=== PATIENT | male | born 1935 | race Caucasian/White ===

== ENCOUNTER 2018-08-06 15:24 | Inpatient (IN) | payer MEDICARE ==
[2018-08-06] MEDS ORDERED: HEPARIN SODIUM,PORCINE 5,000 UNIT/ML 1 ML VIAL IV STA (16:11)
[2018-08-06] MEDS ORDERED: ASPIRIN 81 MG PO STA (16:14)
[2018-08-06] MEDS ORDERED: METOPROLOL TARTRATE 25 MG TAB PO STA (16:14)
[2018-08-06 16:36] LABS: Basophils # (A) 0.1 k/uL (0-0.2); Basophils % (A) 1 %; Eosinophils # (A) 0.2 k/uL (0-0.7); Eosinophils % (A) 2 %; HCT 41.2 % (39.0-53.0); HGB 12.7 gm/dL (13.0-17.5); Hypochromasia Slight; Lymphocytes # (A) 1.1 k/uL (1.0-4.8); Lymphocytes % (A) 9 %; MCH 27.9 pg (25.0-35.0); MCHC 30.7 g/dL (31.0-37.0); MCV 90.9 fL (80.0-100.0); Mean Platelet Volume 7.2; Monocytes # (A) 0.5 k/uL (0-1.0); Monocytes % (A) 4 %; Neutrophils # (A) 9.9 k/uL (1.3-7.7); Neutrophils % (A) 84 %; Platelet Count 379 k/uL (150-450); RBC 4.54 m/uL (4.30-5.90); RDW 13.6 % (11.5-15.5); WBC 11.9 k/uL (3.8-10.6)
[2018-08-06 16:45] LABS: INR 1.1 (<1.2); Partial Thromboplastin Time 25.4 sec (22.0-30.0); Prothrombin Time 11.7 sec (9.0-12.0)
[2018-08-06 16:46] LABS: Albumin 3.6 g/dL (3.5-5.0); Calcium 9.6 mg/dL (8.4-10.2); Potassium 5.1 mmol/L (3.5-5.1); Total Bilirubin 0.7 mg/dL (0.2-1.3); Total Protein 7.1 g/dL (6.3-8.2)
[2018-08-06 16:49] LABS: Creatine Kinase <20 U/L (55-170)
[2018-08-06 17:03] LABS: Creatine Kinase MB 1.3 ng/mL (0.0-2.4)
[2018-08-06 17:20] LABS: Troponin I 0.113 ng/mL (0.000-0.034)
--- NOTE | 2018-08-06 17:56 | ED ---
Recheck HPI - General Chief Complaint: Recheck/Abnormal Lab/Rx Stated Complaint: Heart Issues Time Seen by Provider: 08/06/18 16:04 Source: patient Mode of arrival: wheelchair Limitations: no limitations - History of Present Illness Initial Comments: Patient was sent to the [facility] by his doctor for new onset atrial fibrillation. Patient does have palpitations. He does not know how long its been going on for. He has no pain or swelling in the arms or legs. He has no shortness of breath. He is denying any pain or pressure or tightness in the chest. He has no nausea or vomiting. He has no diaphoresis. He denies any sick contacts or recent travel. - Related Data Home Medications Medication Instructions Recorded Confirmed Aspirin [[place] Aspirin EC] 81 mg PO HS 08/06/18 08/06/18 Cholecalciferol [Vitamin D3] 1,000 unit PO DAILY 08/06/18 08/06/18 Cholesterol Vitamin (Unknown) 1 tab PO DAILY 08/06/18 08/06/18 Cyanocobalamin (Vitamin B-12) 1,000 mcg PO DAILY 08/06/18 08/06/18 [Vitamin B-12] Lisinopril [Prinivil] 10 mg PO DAILY 08/06/18 08/06/18 Vit C/E/Zn/Coppr/Lutein/Zeaxan 1 tab PO BID 08/06/18 08/06/18 [Preservision Areds 2 Softgel] Allergies Allergy/AdvReac Type Severity Reaction Status Date / Time No Known Allergies Allergy Verified 08/06/18 16:56 Review of Systems ROS Statement: Those systems with pertinent positive or pertinent negative responses have been documented in the HPI. ROS Other: All systems not noted in ROS Statement are negative. Past Medical History Past Medical History: Hypertension History of Any Multi-Drug Resistant Organisms: None Reported Past Surgical History: Joint Replacement, Orthopedic Surgery Additional Past Surgical History / Comment(s): hip replacement Past Psychological History: No Psychological Hx Reported Smoking Status: Never smoker Past Alcohol Use History: None Reported Past Drug Use History: None Reported General Exam Limitations: no limitations General appearance: alert, in no apparent distress Head exam: Present: atraumatic, normocephalic, normal inspection Eye exam: Present: normal appearance, PERRL, EOMI. Absent: scleral icterus, conjunctival injection, periorbital swelling ENT exam: Present: normal exam, mucous membranes moist Neck exam: Present: normal inspection. Absent: tenderness, meningismus, lymphadenopathy Respiratory exam: Present: normal lung sounds bilaterally. Absent: respiratory distress, wheezes, rales, rhonchi, stridor Cardiovascular Exam: Present: irregular rhythm, normal heart sounds. Absent: systolic murmur, diastolic murmur, rubs, gallop, clicks GI/Abdominal exam: Present: soft, normal bowel sounds. Absent: distended, tenderness, guarding, rebound, rigid Extremities exam: Present: normal inspection, full ROM, normal capillary refill. Absent: tenderness, pedal edema, joint swelling, calf tenderness Back exam: Present: normal inspection Neurological exam: Present: alert, oriented X3, CN II-XII intact Psychiatric exam: Present: normal affect, normal mood Skin exam: Present: warm, dry, intact, normal color. Absent: rash Course Vital Signs 08/06/18 08/06/18 08/06/18 15:34 16:11 16:20 Temperature 98.0 F Pulse Rate 74 82 Respiratory 18 23 Rate Blood Pressure 132/88 124/89 124/89 O2 Sat by Pulse 98 87 L 95 Oximetry Medical Decision Making - Lab Data Result diagrams: 08/06/18 16:15 08/06/18 16:15 Lab Results 08/06/18 08/06/18 08/06/18 Range/Units 16:15 16:15 16:15 WBC 11.9 H (3.8-10.6) k/uL RBC 4.54 (4.30-5.90) m/uL Hgb 12.7 L (13.0-17.5) gm/dL Hct 41.2 (39.0-53.0) % MCV 90.9 (80.0-100.0) fL MCH 27.9 (25.0-35.0) pg MCHC 30.7 L (31.0-37.0) g/dL RDW 13.6 (11.5-15.5) % Plt Count 379 (150-450) k/uL Neutrophils % 84 % Lymphocytes % 9 % Monocytes % 4 % Eosinophils % 2 % Basophils % 1 % Neutrophils # 9.9 H (1.3-7.7) k/uL Lymphocytes # 1.1 (1.0-4.8) k/uL Monocytes # 0.5 (0-1.0) k/uL Eosinophils # 0.2 (0-0.7) k/uL Basophils # 0.1 (0-0.2) k/uL Hypochromasia Slight PT (9.0-12.0) sec INR (<1.2) APTT (22.0-30.0) sec Sodium 143 (137-145) mmol/L Potassium 5.1 (3.5-5.1) mmol/L Chloride 106 (98-107) mmol/L Carbon Dioxide 26 (22-30) mmol/L Anion Gap 11 mmol/L BUN 36 H (9-20) mg/dL Creatinine 1.53 H (0.66-1.25) mg/dL Est GFR (CKD-EPI)AfAm 48 (>60 ml/min/1.73 sqM) Est GFR (CKD-EPI)NonAf 42 (>60 ml/min/1.73 sqM) Glucose 107 H (74-99) mg/dL Calcium 9.6 (8.4-10.2) mg/dL Total Bilirubin 0.7 (0.2-1.3) mg/dL AST 26 (17-59) U/L ALT 43 (21-72) U/L Alkaline Phosphatase 131 H (38-126) U/L Total Creatine Kinase <20 L (55-170) U/L CK-MB (CK-2) 1.3 (0.0-2.4) ng/mL CK-MB (CK-2) Rel Index Troponin I 0.113 H* (0.000-0.034) ng/mL Total Protein 7.1 (6.3-8.2) g/dL Albumin 3.6 (3.5-5.0) g/dL 08/06/18 Range/Units 16:15 WBC (3.8-10.6) k/uL RBC (4.30-5.90) m/uL Hgb (13.0-17.5) gm/dL Hct (39.0-53.0) % MCV (80.0-100.0) fL MCH (25.0-35.0) pg MCHC (31.0-37.0) g/dL RDW (11.5-15.5) % Plt Count (150-450) k/uL Neutrophils % % Lymphocytes % % Monocytes % % Eosinophils % % Basophils % % Neutrophils # (1.3-7.7) k/uL Lymphocytes # (1.0-4.8) k/uL Monocytes # (0-1.0) k/uL Eosinophils # (0-0.7) k/uL Basophils # (0-0.2) k/uL Hypochromasia PT 11.7 (9.0-12.0) sec INR 1.1 (<1.2) APTT 25.4 (22.0-30.0) sec Sodium (137-145) mmol/L Potassium (3.5-5.1) mmol/L Chloride (98-107) mmol/L Carbon Dioxide (22-30) mmol/L Anion Gap mmol/L BUN (9-20) mg/dL Creatinine (0.66-1.25) mg/dL Est GFR (CKD-EPI)AfAm (>60 ml/min/1.73 sqM) Est GFR (CKD-EPI)NonAf (>60 ml/min/1.73 sqM) Glucose (74-99) mg/dL Calcium (8.4-10.2) mg/dL Total Bilirubin (0.2-1.3) mg/dL AST (17-59) U/L ALT (21-72) U/L Alkaline Phosphatase (38-126) U/L Total Creatine Kinase (55-170) U/L CK-MB (CK-2) (0.0-2.4) ng/mL CK-MB (CK-2) Rel Index Troponin I (0.000-0.034) ng/mL Total Protein (6.3-8.2) g/dL Albumin (3.5-5.0) g/dL 08/06/18 17:55 Twelve-lead EKG shows ventricular rate 82 bpm, there are no P waves, the rate is irregular, there is no ST elevation or depression, interpreted by me as atrial fibrillation. Critical Care Time Critical Care Time: Yes (IV heparin) Total Critical Care Time: 35 Disposition Clinical Impression: Atrial fibrillation Disposition: ADMITTED IP TO THIS HOSP Condition: Serious Is patient prescribed a controlled substance at d/c from ED?: No Referrals: Johan Duckworth MD [Primary Care Provider] - 1-2 days
[2018-08-06] MEDS ORDERED: NALOXONE 0.4 MG/ML 1 ML VIAL IV PRN (18:00)
[2018-08-06] MEDS ORDERED: HEPARIN SODIUM,PORCINE 5,000 UNIT/ML 1 ML VIAL IV PRN (20:48)
[2018-08-06] MEDS ORDERED: HEPARIN SOD,PORK IN 0.45% NACL 25,000 UNIT in 0.45% NACL 1 250ML.BAG IV SCH (21:15)
[2018-08-06 21:54] LABS: INR 1.2 (<1.2); Partial Thromboplastin Time 25.2 sec (22.0-30.0); Prothrombin Time 12.1 sec (9.0-12.0)
--- NOTE | 2018-08-07 00:17 | P.HPIM ---
History of Present Illness H&P Date: 08/06/18 The patient is an 82-year-old male with a PMH of hypertension who was sent to the ED by his industrial painter for new onset of A. fib. The patient notes that for the past few months, he has been experiencing left-sided sharp chest pain, intermittent, with no alleviating or exacerbating factors, which resolves within a few minutes on its own, and is nonexertional. The patient was seen his industrial painter today for a scheduled visit when he was diagnosed with A. fib and was subsequently advised to come to the ED. The patient denied any active complaints and notes that he last had his chest pain 2 days ago. He denied chest pain, shortness of breath, nausea, vomiting, palpitations. He also denied fever, chills, or cough. Denied abdominal pain, diarrhea, or dysuria. In the emergency room the patient underwent a comprehensive workup with CBC count 11.9, creatinine 1.53, with EKG showing atrial fibrillation with right bundle branch block at 82 beats per minutes with PVCs. Troponin was 0.113. The patient was subsequently admitted to the medicine service for new onset A. fib. Review of Systems Pertinent positives and negatives as discussed in HPI, a complete review of systems was performed and all other systems are negative. Past Medical History Past Medical History: Hypertension Additional Past Medical History / Comment(s): athritis History of Any Multi-Drug Resistant Organisms: None Reported Past Surgical History: Joint Replacement, Orthopedic Surgery Additional Past Surgical History / Comment(s): hip replacement Past Psychological History: No Psychological Hx Reported Smoking Status: Never smoker Past Alcohol Use History: None Reported Past Drug Use History: None Reported Medications and Allergies Home Medications Medication Instructions Recorded Confirmed Type Aspirin [[place] Aspirin EC] 81 mg PO HS 08/06/18 08/06/18 History Cholecalciferol [Vitamin D3] 1,000 unit PO DAILY 08/06/18 08/06/18 History Cholesterol Vitamin (Unknown) 1 tab PO DAILY 08/06/18 08/06/18 History Cyanocobalamin (Vitamin B-12) 1,000 mcg PO DAILY 08/06/18 08/06/18 History [Vitamin B-12] Lisinopril [Prinivil] 10 mg PO DAILY 08/06/18 08/06/18 History Vit C/E/Zn/Coppr/Lutein/Zeaxan 1 tab PO BID 08/06/18 08/06/18 History [Preservision Areds 2 Softgel] Allergies Allergy/AdvReac Type Severity Reaction Status Date / Time No Known Allergies Allergy Verified 08/06/18 16:56 Physical Exam Vitals: Vital Signs Temp Pulse Pulse Resp BP BP Pulse Ox 08/06/18 20:10 16 08/06/18 19:48 97.9 F 65 16 130/87 96 08/06/18 19:08 97.7 F 80 18 128/99 96 08/06/18 17:50 71 16 128/93 08/06/18 17:40 78 20 128/93 08/06/18 17:30 74 20 130/94 08/06/18 17:20 80 16 130/94 08/06/18 17:10 79 16 130/94 08/06/18 17:00 83 16 120/95 08/06/18 16:50 84 16 120/95 08/06/18 16:40 89 15 120/95 08/06/18 16:30 83 16 124/89 08/06/18 16:20 82 23 124/89 95 08/06/18 16:11 124/89 87 L 08/06/18 15:34 98.0 F 74 18 132/88 98 Intake and Output 08/06/18 08/06/18 08/07/18 14:59 22:59 06:59 Other: Weight 99.79 kg General: non toxic, no distress, appears at stated age, normal weight Derm: no unusual rashes/lesions no unusual ecchymoses, warm, dry Head: atraumatic, normocephalic, symmetric Eyes: EOMI, no lid lag, anicteric sclera, pupils equal round reactive to light ENT: Nose and ears atraumatic, no thrush, no pharyngeal erythema Neck: No thyromegaly, no cervical lymphadenopathy, trachea midline, supple Mouth: no lip lesion, mucus membranes moist Cardiovascular: Irregularly irregular rhythm, no murmur, positive posterior tibial pulse bilateral, 1+ pitting edema lower extremities bilaterally, capillary refill less than 2 seconds Lungs: CTA bilateral, no rhonchi, no rales , no accessory muscle use Abdominal: soft, nontender to palpation, no guarding, no appreciable organomegaly, normal bowel sounds Ext: no gross muscle atrophy, muscle strength 5 out of 5 in all 4 extremities grossly, no contractures, Neuro: CN II-XI grossly intact, light touch intact all 4 extremities, finger to nose within normal limits, Psych: Alert, oriented, appropriate affect Results CBC & Chem 7: 08/07/18 03:32 08/07/18 03:32 Labs: Abnormal Lab Results - Last 24 Hours (Table) 08/06/18 08/06/18 08/06/18 Range/Units 16:15 16:15 16:15 WBC 11.9 H (3.8-10.6) k/uL Hgb 12.7 L (13.0-17.5) gm/dL MCHC 30.7 L (31.0-37.0) g/dL Neutrophils # 9.9 H (1.3-7.7) k/uL PT (9.0-12.0) sec INR (<1.2) BUN 36 H (9-20) mg/dL Creatinine 1.53 H (0.66-1.25) mg/dL Glucose 107 H (74-99) mg/dL Alkaline Phosphatase 131 H (38-126) U/L Total Creatine Kinase <20 L (55-170) U/L Troponin I 0.113 H* (0.000-0.034) ng/mL 08/06/18 08/06/18 Range/Units 21:25 21:25 WBC (3.8-10.6) k/uL Hgb (13.0-17.5) gm/dL MCHC (31.0-37.0) g/dL Neutrophils # (1.3-7.7) k/uL PT 12.1 H (9.0-12.0) sec INR 1.2 H (<1.2) BUN (9-20) mg/dL Creatinine (0.66-1.25) mg/dL Glucose (74-99) mg/dL Alkaline Phosphatase (38-126) U/L Total Creatine Kinase (55-170) U/L Troponin I 0.107 H* (0.000-0.034) ng/mL Thrombosis Risk Factor Assmnt - Choose All That Apply Any of the Below Risk Factors Present?: Yes Each Factor Represents 1 point: Obesity (BMI >25), Swollen legs (current) Other Risk Factors: Yes Each Risk Factor Represents 3 Points: Age 75 years or older Other congenital or acquired thrombophilia - If yes, enter type in comment: No Thrombosis Risk Factor Assessment Total Risk Factor Score: 5 Thrombosis Risk Factor Assessment Level: High Risk Assessment and Plan Plan: Newly diagnosed atrial fibrillation -Cardiac monitoring -Cardiology consult -Heparin infusion for now -Echocardiogram Chest pain, rule out ACS, troponin elevation -We'll trend troponin -Cardiac monitoring -Heparin infusion Kidney injury, unspecified -We'll monitor BMP -Hold lisinopril for now Hypertension -Hold lisinopril in the setting of kidney injury Leukocytosis -Monitor for now DVT//GI prophylaxis -Heparin infusion -No indication for GI prophylaxis The patient is admitted with an anticipated greater than 2 midnight stay for evaluation of newly diagnosed atrial fibrillation. CODE STATUS: Full code Discussed with: Patient Anticipated discharge date: 08/09/[address]: Home A total of 50 minutes was spent on the care of this complex patient more than 50 % of the time was spent in counseling and care coordination.
[2018-08-07 04:00] LABS: Basophils # (A) 0.1 k/uL (0-0.2); Basophils % (A) 1 %; Eosinophils # (A) 0.1 k/uL (0-0.7); Eosinophils % (A) 1 %; HCT 37.8 % (39.0-53.0); HGB 11.8 gm/dL (13.0-17.5); Hypochromasia Moderate; Lymphocytes % (A) 11 %; MCH 28.2 pg (25.0-35.0); MCHC 31.1 g/dL (31.0-37.0); MCV 90.5 fL (80.0-100.0); Mean Platelet Volume 6.4; Monocytes # (A) 0.4 k/uL (0-1.0); Monocytes % (A) 4 %; Neutrophils # (A) 7.2 k/uL (1.3-7.7); Neutrophils % (A) 82 %; Platelet Count 366 k/uL (150-450); RBC 4.17 m/uL (4.30-5.90); RDW 13.2 % (11.5-15.5); WBC 8.8 k/uL (3.8-10.6)
[2018-08-07 04:08] LABS: Calcium 9.3 mg/dL (8.4-10.2)
[2018-08-07] MEDS ORDERED: ALPRAZolam 0.25 MG TAB PO PRN (07:55)
[2018-08-07] MEDS ORDERED: ATORVASTATIN 80 MG TAB PO STA (07:55)
[2018-08-07] MEDS ORDERED: NITROGLYCERIN SL TABS 0.4 MG TAB SUBLINGUAL PRN (07:55)
[2018-08-07] MEDS ORDERED: SODIUM CHLORIDE 0.9% 1,000 ML in EMPTY BAG 1 BAG IV ONE (07:55)
[2018-08-07] MEDS ORDERED: ALPRAZolam 0.5 MG TAB PO PRN (07:55)
[2018-08-07] MEDS ORDERED: ASPIRIN 325 MG TAB PO STA (08:58)
[2018-08-07] MEDS ORDERED: LIDOCAINE 1% INJ 10MG/ML (20 ML MDV) ONE (10:00)
[2018-08-07] MEDS ORDERED: fentaNYL (PF) 50 MCG/ML 2 ML AMP ONE (10:00)
--- NOTE | 2018-08-07 10:05 | ECHOF ---
Referral Reason:Afib MEASUREMENTS -------- HEIGHT: 185.4 cm WEIGHT: 99.8 kg BP: 120/69 RVIDd: 2.8 cm (< 3.3) IVSd: 1.6 cm (0.6 - 1.1) LVIDd: 4.7 cm (3.9 - 5.3) LVPWd: 1.4 cm (0.6 - 1.1) IVSs: 1.8 cm LVIDs: 4.4 cm LVPWs: 1.4 cm LAESV Index (A-L): 40.02 ml/m Ao Diam: 3.4 cm (2.0 - 3.7) AV Cusp: 0.8 cm (1.5 - 2.6) LA Diam: 3.9 cm (2.7 - 3.8) AV maxP.57 mmHg AV meanP.25 mmHg AR PHT: 94 ms RAP: 5.00 mmHg RVSP: 41.65 mmHg FINDINGS -------- Atrial fibrillation. This was a technically difficult study with suboptimal views. The left ventricular size is normal. There is moderate concentric left ventricular hypertrophy. T here is severe global hypokinesis of LV . Overall left ventricular systolic function is severely im paired with, an EF between 20 - 25 %. The right ventricle is normal in size and function. LA is severely dilated >40 ml/m2 The right atrium is normal in size. Lumason used Aortic valve is trileaflet and is moderately thickened. Trace amount of aortic regurgitation. Th ere is moderate aortic stenosis present. Peak/mean gradient across the Aortic Valve is 29.57mmHg / 15.25mmHg. The mitral valve leaflets are mildly thickened. Mild mitral annular calcification present. Mild m itral regurgitation is present. Mild tricuspid regurgitation present. There is mild pulmonary hypertension. The right ventricular systolic pressure, as measured by Doppler, is 41.65mmHg. Trace/mild (physiologic) pulmonic regurgitation. The aortic root size is normal. IVC Not well visulized. The pericardium is normal. CONCLUSIONS -------- 1. Atrial fibrillation. 2. This was a technically difficult study with suboptimal views. 3. The left ventricular size is normal. 4. There is moderate concentric left ventricular hypertrophy. 5. There is severe global hypokinesis of LV . 6. Overall left ventricular systolic function is severely impaired with, an EF between 20 - 25 %. 7. The right ventricle is normal in size and function. 8. LA is severely dilated >40 ml/m2 9. The right atrium is normal in size. 10. Lumason used 11. Aortic valve is trileaflet and is moderately thickened. 12. Trace amount of aortic regurgitation. 13. There is moderate aortic stenosis present. 14. Peak/mean gradient across the Aortic Valve is 29.57mmHg / 15.25mmHg. 15. The mitral valve leaflets are mildly thickened. 16. Mild mitral annular calcification present. 17. Mild mitral regurgitation is present. 18. Mild tricuspid regurgitation present. 19. There is mild pulmonary hypertension. 20. The right ventricular systolic pressure, as measured by Doppler, is 41.65mmHg. 21. Trace/mild (physiologic) pulmonic regurgitation. 22. The aortic root size is normal. 23. IVC Not well visulized. 24. The pericardium is normal. [employer]: Megan Vernon RDCS
[2018-08-07] MEDS ORDERED: MIDAZOLAM 2 MG/2 ML VIAL IVP ONE (10:15)
[2018-08-07] MEDS ORDERED: fentaNYL (PF) 50 MCG/ML 2 ML AMP IVP ONE (10:15)
[2018-08-07] MEDS ORDERED: LIDOCAINE 1% INJ 10MG/ML (20 ML MDV) SQ ONE (10:16)
[2018-08-07] MEDS ORDERED: IV FLUID CONTINUATION 1,000 ML IV ONE (10:18)
[2018-08-07] MEDS ORDERED: IOPAMIDOL-370 100ML BTL INJ ONE (10:25)
[2018-08-07] MEDS ORDERED: RX INFO: IV CONTRAST WAS GIVEN 1 EACH MISC MISCELLANE PRN (10:44)
[2018-08-07] MEDS: CARVEDILOL 3.125 MG TAB PO SCH ×2 (11:24→16:58)
[2018-08-07] MEDS: APIXABAN 2.5 MG TABLET PO SCH ×2 (11:24→20:51)
[2018-08-07] MEDS ORDERED: ONDANSETRON 4 MG/2 ML VIAL IVP PRN (11:26)
[2018-08-07] MEDS ORDERED: HYDROcodone/APAP 5-325MG 1 EACH TAB PO PRN (11:26)
[2018-08-07] MEDS ORDERED: ACETAMINOPHEN TAB 325 MG TAB PO PRN (11:26)
--- NOTE | 2018-08-07 16:09 | P.PN ---
Subjective Progress Note Date: 08/07/18 Principal diagnosis: chest pain Patient is an 82-year-old male past medical history of hypertension who was sent over from the cardiology office for chest pain associated with new onset A. fib. In the ER he underwent extensive evaluation. His initial white blood cell Was slightly elevated at 11.9. Initial creatinine slightly elevated at 1.53 but unknown baseline. Initial troponin was mildly elevated 0.113. EKG did not show any signs of acute ischemia. He was admitted as observation to the cardiac unit. He underwent stat echocardiogram which revealed a depressed ejection fraction of 20-25%. He underwent cardiac cath on the morning of 08/07 which was negative for any signs of stenosis. Patient seen and examined at bedside. He denies any chest pain, shortness breath, nausea, or vomiting. He states when he moved from the stretcher to the bed he became slightly nauseous. He denies any pain. Objective - Vital Signs Vital signs: Vital Signs Temp 97.6 F 08/07/18 08:00 Pulse 82 08/07/18 08:00 Resp 16 08/07/18 08:00 BP 137/91 08/07/18 08:00 Pulse Ox 93 L 08/07/18 08:00 Intake & Output 08/06/18 08/07/18 08/07/18 18:59 06:59 18:59 Intake Total 63.974 50 Balance 63.974 50 Weight 99.79 kg 99.3 kg Intake: IV 50 Intake, IV Titration 63.974 Amount Heparin Sod,Pork in 0.45% 63.974 NaCl 25,000 unit In 0.45 % NaCl 1 250ml.bag @ 10 UNITS/KG/HR 9.97 mls/hr IV .Q24H [facility] Rx#: [id number] Other: # Voids 3 - Exam General: non toxic, no distress, appears at stated age Derm: warm, dry Head: atraumatic, normocephalic, symmetric Eyes: EOMI, no lid lag, anicteric sclera Mouth: no lip lesion, mucus membranes moist Cardiovascular: S1S2 irreg, no murmur, positive posterior tibial pulse bilateral , Lungs: CTA bilateral, no rhonchi, no rales , no accessory muscle use Abdominal: soft, nontender to palpation, no guarding, no appreciable organomegaly Ext: no gross muscle atrophy, no edema, no contractures Neuro: CN II-XI grossly intact, no focal neuro deficits Psych: Alert, oriented, appropriate affect - Labs CBC & Chem 7: 08/07/18 03:32 08/07/18 03:32 Labs: Abnormal Lab Results - Last 24 Hours (Table) 08/06/18 08/06/18 08/06/18 Range/Units 16:15 16:15 16:15 WBC 11.9 H (3.8-10.6) k/uL RBC (4.30-5.90) m/uL Hgb 12.7 L (13.0-17.5) gm/dL Hct (39.0-53.0) % MCHC 30.7 L (31.0-37.0) g/dL Neutrophils # 9.9 H (1.3-7.7) k/uL PT (9.0-12.0) sec INR (<1.2) APTT (22.0-30.0) sec Chloride (98-107) mmol/L BUN 36 H (9-20) mg/dL Creatinine 1.53 H (0.66-1.25) mg/dL Glucose 107 H (74-99) mg/dL Alkaline Phosphatase 131 H (38-126) U/L Total Creatine Kinase <20 L (55-170) U/L Troponin I 0.113 H* (0.000-0.034) ng/mL 08/06/18 08/06/18 08/07/18 Range/Units 21:25 21:25 03:32 WBC (3.8-10.6) k/uL RBC (4.30-5.90) m/uL Hgb (13.0-17.5) gm/dL Hct (39.0-53.0) % MCHC (31.0-37.0) g/dL Neutrophils # (1.3-7.7) k/uL PT 12.1 H (9.0-12.0) sec INR 1.2 H (<1.2) APTT (22.0-30.0) sec Chloride (98-107) mmol/L BUN (9-20) mg/dL Creatinine (0.66-1.25) mg/dL Glucose (74-99) mg/dL Alkaline Phosphatase (38-126) U/L Total Creatine Kinase (55-170) U/L Troponin I 0.107 H* 0.121 H* (0.000-0.034) ng/mL 08/07/18 08/07/18 08/07/18 Range/Units 03:32 03:32 03:32 WBC (3.8-10.6) k/uL RBC 4.17 L (4.30-5.90) m/uL Hgb 11.8 L (13.0-17.5) gm/dL Hct 37.8 L (39.0-53.0) % MCHC (31.0-37.0) g/dL Neutrophils # (1.3-7.7) k/uL PT (9.0-12.0) sec INR (<1.2) APTT 31.7 H (22.0-30.0) sec Chloride 108 H (98-107) mmol/L BUN 36 H (9-20) mg/dL Creatinine 1.60 H (0.66-1.25) mg/dL Glucose 104 H (74-99) mg/dL Alkaline Phosphatase (38-126) U/L Total Creatine Kinase (55-170) U/L Troponin I (0.000-0.034) ng/mL Assessment and Plan Assessment: Acute systolic cardiomyopathy -Cardiology recommendations, cardiac cath negative per nursing -Coreg - will ideally need ACEI but hold off with contrast exposure - outpatient VIKTORIA testing Chest pain with flat troponin elevation possibly related to CKD - cath negative per nursing - cardio recs New-onset A. fib -Rate controlled -Telemetry -Eliquis HTN, controlled - coreg - follow BP Elevated Cr, unknown baseline - repeat Cr in AM with contrast exposure Leukocytosis, resolved DVT prophylaxis: [email or web address] Discussed with: patient, nursing Anticipated discharge: 24-[address]: home A total of 25 minutes was spent on the care of this complex patient more than 50 % of the time was spent in counseling and care coordination.
[2018-08-07] MEDS ORDERED: ASPIRIN 81 MG PO SCH (21:00)
[2018-08-08 05:35] VITALS: RESP 18
[2018-08-08] MEDS: CARVEDILOL 3.125 MG TAB PO SCH (06:40)
[2018-08-08 06:56] LABS: Basophils % (A) 0 %; Eosinophils # (A) 0.1 k/uL (0-0.7); Eosinophils % (A) 1 %; HCT 37.7 % (39.0-53.0); HGB 11.4 gm/dL (13.0-17.5); Hypochromasia Moderate; Lymphocytes # (A) 0.9 k/uL (1.0-4.8); Lymphocytes % (A) 10 %; MCH 27.6 pg (25.0-35.0); MCHC 30.2 g/dL (31.0-37.0); MCV 91.2 fL (80.0-100.0); Mean Platelet Volume 6.4; Monocytes # (A) 0.4 k/uL (0-1.0); Monocytes % (A) 5 %; Neutrophils % (A) 84 %; Platelet Count 329 k/uL (150-450); RBC 4.13 m/uL (4.30-5.90); RDW 13.1 % (11.5-15.5); WBC 9.5 k/uL (3.8-10.6)
[2018-08-08 07:13] LABS: Calcium 9.4 mg/dL (8.4-10.2); Magnesium 1.8 mg/dL (1.6-2.3); Potassium 5.4 mmol/L (3.5-5.1)
[2018-08-08] MEDS ORDERED: SODIUM POLYSTYRENE SULFONATE 15 GM/60 ML BOTTLE PO STA ×2 (07:57→13:10)
[2018-08-08] MEDS: APIXABAN 2.5 MG TABLET PO SCH (08:33)
[2018-08-08 11:42] VITALS: BP 125/84; PULSE 75; TEMP 98.1
[2018-08-08 12:39] LABS: Calcium 9.5 mg/dL (8.4-10.2); Potassium 5.3 mmol/L (3.5-5.1)
--- NOTE | 2018-08-08 14:39 | PN ---
PROGRESS NOTE Mr. Bailon is an 85-year-old male who was admitted by Dr. Evans and underwent cardiac catheterization, was found to have no evidence of high-grade stenosis. He has evidence of cardiomyopathy noted on the echocardiogram with ejection fraction 20-25 percent with a moderate aortic stenosis. He is feeling better today. His breathing is stable. He is denying any dizziness. No palpitation. He denies any nausea. He continues to be on Eliquis 2.5 mg twice a day, aspirin 81 mg daily, Coreg 3.125 mg twice a day. PHYSICAL EXAMINATION: Blood pressure 125/80 with a heart rate in the 70s. LUNGS: Clear. HEART: Irregularly irregular S1, S2. No S3 with systolic murmur heard at the base, ejection type. No diastolic murmur. No rub. ABDOMEN: Soft, obese, nontender. Right groin, no hematoma. LAB DATA: Revealed BUN and creatinine 31 and 1.47, potassium 5.3, hemoglobin of 11.4. His FANG inhibitor has been on hold because of his renal function. IMPRESSION: 1. Atrial fibrillation, anticoagulated. 2. Nonischemic cardiomyopathy. 3. Aortic stenosis. 4. Chronic kidney disease. RECOMMENDATION: I will increase the dose of his Coreg to 6.25 mg twice a day. I would expect he should be able to be discharged home today and follow as an outpatient with Dr. Evans for further evaluation and adjustment of his medical regimen. If his potassium remains elevated, then he may be a candidate to add hydralazine to his regimen. MMODL / IJN: [id number] /
--- NOTE | 2018-08-08 15:19 | P.DS ---
Providers Date of admission: 08/06/18 18:00 Expected date of discharge: 08/08/18 Attending physician: Cheryle Flood MD Consults: 08/06/18 18:00 Consult Physician Routine Consulting Provider: Naren Leroy Consult Reason/Comments: a fib Do you want consulting provider notified?: Yes Primary care physician: Johan Duckworth Hospital Course: Discharge Diagnosis: Systolic cardiomyopathy Chest pain Elevated troponin New-onset A fib HTN Elevated JEANNE vs CKD Hyperkalemia Hospital Course: Patient is an 82-year-old male past medical history of hypertension who was sent over from the cardiology office for chest pain associated with new onset A. fib. In the ER he underwent extensive evaluation. His initial white blood cell was slightly elevated at 11.9. Initial creatinine slightly elevated at 1.53 but unknown baseline. Initial troponin was mildly elevated 0.113. EKG did not show any signs of acute ischemia. He was admitted as observation to the cardiac unit. He underwent stat echocardiogram which revealed a depressed ejection fraction of 20-25%. He underwent cardiac cath on the morning of 08/07 which was negative for any signs of stenosis. He tolerated the procedure well. He was started on coreg by cardio and his lisinopril was held due to elevated potassium. He was given a dose of kayexelate and his potassium decreased to 5.3. He was given a second dose of kayexelate. He was determined stable for discharge by cardio. He will have repeat blood work in the morning to ensure potassium improving. He will hold his lisinopril through 08/10. He was started on eliquis for his A fib. He will be getting future medications through [place] Patient seen and examined at bedside. No chest pain, SOB, nausea, or diarrhea. All questions answered. Patient feels his apetitie has been low for the last year and I encouraged Vital signs reviewed and stable. General: non toxic, no distress, appears at stated age Derm: warm, dry Head: atraumatic, normocephalic, symmetric Eyes: EOMI, no lid lag, anicteric sclera Mouth: no lip lesion, mucus membranes moist Cardiovascular: S1S2 reg, no murmur, positive posterior tibial pulse bilateral, Lungs: CTA bilateral, no rhonchi, no rales , no accessory muscle use Abdominal: soft, nontender to palpation, no guarding, no appreciable organomegaly Ext: no gross muscle atrophy, no edema, no contractures Neuro: CN II-XI grossly intact, no focal neuro deficits Psych: Alert, oriented, appropriate affect A total of 30 minutes of time were spent preparing this complex discharge summary . Pertinent Studies: Cath- no significant stenosis Patient Condition at Discharge: Serious Plan - Discharge Summary Discharge Rx Participant: No New Discharge Prescriptions: New Apixaban [Eliquis] 2.5 mg PO BID #60 tablet Carvedilol [Coreg] 6.25 mg PO BID-W/MEALS #60 tab Continue Vit C/E/Zn/Coppr/Lutein/Zeaxan [Preservision Areds 2 Softgel] 1 tab PO BID Aspirin [[place] Aspirin EC] 81 mg PO HS Lisinopril [Prinivil] 10 mg PO DAILY Cyanocobalamin (Vitamin B-12) [Vitamin B-12] 1,000 mcg PO DAILY Cholecalciferol [Vitamin D3] 1,000 unit PO DAILY Cholesterol Vitamin (Unknown) 1 tab PO DAILY Discharge Medication List Aspirin [[place] Aspirin EC] 81 mg PO HS 08/06/18 [History] Cholecalciferol [Vitamin D3] 1,000 unit PO DAILY 08/06/18 [History] Cholesterol Vitamin (Unknown) 1 tab PO DAILY 08/06/18 [History] Cyanocobalamin (Vitamin B-12) [Vitamin B-12] 1,000 mcg PO DAILY 08/06/18 [ History] Lisinopril [Prinivil] 10 mg PO DAILY 08/06/18 [History] Vit C/E/Zn/Coppr/Lutein/Zeaxan [Preservision Areds 2 Softgel] 1 tab PO BID 08/06 [History] Apixaban [Eliquis] 2.5 mg PO BID #60 tablet 08/08/18 [Rx] Carvedilol [Coreg] 6.25 mg PO BID-W/MEALS #60 tab 08/08/18 [Rx] Follow up Appointment(s)/Referral(s): Johan Duckworth MD [Primary Care Provider] - 08/13/18 2:30 pm Levi Evans MD [STAFF PHYSICIAN] - 08/14/18 9:15 am Ambulatory/Diagnostic Orders: Basic Metabolic Panel [LAB.AMB] Time Frame: 1 Day, Location: None Selected Patient Instructions/Handouts: A-fib (Atrial Fibrillation) (DC), Heart Healthy Diet (DC), Blood Thinners (DC) Activity/Diet/Wound Care/Special Instructions: Pt does not have Prescription coverage, A free 30 day coupon for Eliquis and samples from the doctors office are available. Heart health diet Please obtain lab work tomorrow if potassium is still high Dr. Veronica will call you with further instructions. Lab is open tomorrow -. Resume Lisinopril on Thursday 08/10 Discharge Disposition: HOME SELF-CARE
[2018-08-08] MEDS ORDERED: CARVEDILOL 6.25 MG TAB PO SCH (17:30)
--- NOTE | 2018-08-11 11:53 | CDI ---
Documentation Clarification Form Date: 08/11/2018 11:42:51 AM From: Rosy Foster Margaret Aguilar, Technical Account Executive Hours-8:30 am & 5 pm M-F Admit Date: 08/06/2018 6:00:00 PM Patient Name: Jeff Bailon Visit Number: [id number] Discharge Date: 08/08/2018 6:51:00 PM ATTENTION: The Clinical Documentation Specialists (CDI) and [facility] Coding Staff appreciate your assistance in clarifying documentation. Please respond to the clarification below the line at the bottom and electronically sign. The CDI & [facility] Coding staff will review the response and follow-up if needed. Please note: Queries are made part of the Legal Health Record. If you have any questions, please contact the author of this message via ITS. Dr. Cheryle Flood Atrial Fibrillation is documented in the H&P, PNs, DS History/Risk Factors: HTN, Obesity, CMP EKG/telemetry: AFIB Treatment: Annabelle Consults: Cristina In your professional opinion, can you please clarify the type of Atrial Fibrillation, if known? Chronic/Permanent Paroxysmal Persistent Other, please specify Unable to determine Not [facility] patient [facility]
== END 2018-08-08 18:51 | disposition home or self-care (01) | DRG 287 ==
LOC: EC 15:24 → 3SCARD 18:00
PROVIDERS: ADMIT Internal Medicine; ATTEND Internal Medicine
PROC: B2111ZZ Fluoroscopy of Multiple Coronary Arteries using Low Osmolar Contrast (ICD-10-PCS; 2018-08-07)
PROC: 4A023N7 Measurement of Cardiac Sampling and Pressure, Left Heart, Percutaneous Approach (ICD-10-PCS; principal; 2018-08-07 10:00)
DX: I48.91 Unspecified atrial fibrillation (principal); N17.9 Acute kidney failure, unspecified; E87.5 Hyperkalemia; I42.8 Other cardiomyopathies; I35.0 Nonrheumatic aortic (valve) stenosis; I45.10 Unspecified right bundle-branch block; N18.9 Chronic kidney disease, unspecified; I12.9 Hypertensive chronic kidney disease with stage 1 through stage 4 chronic kidney disease, or unspecified chronic kidney disease; E66.9 Obesity, unspecified; Z68.26 Body mass index [BMI] 26.0-26.9, adult; R74.8 Abnormal levels of other serum enzymes; Z79.82 Long term (current) use of aspirin; Z79.899 Other long term (current) drug therapy; Z96.649 Presence of unspecified artificial hip joint
CPT/HCPCS: 36415; 80048; 80053; 82550; 82553; 83735; 84443; 84484; 85025; 85610; 85730; 93005; 93306; 93458; 96374; 99285

== ENCOUNTER → 2018-08-09 | Outpatient (CLI) | payer MEDICARE ==
[2018-08-09 16:53] LABS: Anion Gap 8.4 mmol/L (4.00-12.00); Calcium 9.4 mg/dL (8.7-10.3); Carbon Dioxide 29.6 mmol/L (21.6-31.8); Potassium 4.4 mmol/L (3.5-5.5)
== END ==
LOC: LABWHC1 09:31
PROVIDERS: ATTEND Internal Medicine
DX: N17.9 Acute kidney failure, unspecified (principal); E87.5 Hyperkalemia
CPT/HCPCS: 36415; 80048

== ENCOUNTER → 2018-08-14 | Outpatient (CLI) | payer MEDICARE ==
[2018-08-14 18:12] LABS: Anion Gap 11.9 mmol/L (4.00-12.00); Carbon Dioxide 26.1 mmol/L (21.6-31.8); Potassium 4.8 mmol/L (3.5-5.5)
== END | disposition home or self-care (01) ==
LOC: LABWHC1 10:14
PROVIDERS: ATTEND Internal Medicine Cardiovascular Disease
DX: I48.0 Paroxysmal atrial fibrillation (principal)
CPT/HCPCS: 36415; 80051; 82565; 84520

== ENCOUNTER → 2018-09-25 | Outpatient (CLI) | payer MEDICARE ==
[2018-09-25 18:54] LABS: Basophils # (A) 0.1 k/uL (0-0.2); Basophils % (A) 1 %; Eosinophils # (A) 0.3 k/uL (0-0.7); Eosinophils % (A) 3 %; HGB 13.4 gm/dL (13.0-17.5); Hypochromasia Slight; Lymphocytes # (A) 1.3 k/uL (1.0-4.8); Lymphocytes % (A) 14 %; MCH 28.1 pg (25.0-35.0); MCHC 31.2 g/dL (31.0-37.0); MCV 90.1 fL (80.0-100.0); Mean Platelet Volume 8.2; Monocytes # (A) 0.6 k/uL (0-1.0); Monocytes % (A) 6 %; Neutrophils # (A) 7.4 k/uL (1.3-7.7); Neutrophils % (A) 76 %; Platelet Count 302 k/uL (150-450); RBC 4.77 m/uL (4.30-5.90); RDW 15.2 % (11.5-15.5); WBC 9.7 k/uL (3.8-10.6)
[2018-09-25 20:19] LABS: Erythrocyte Sedimentation Rate 15 mm/hr (0-15)
[2018-09-26 00:01] LABS: C Reactive Protein 1.2 mg/dL (0.0-0.8); Uric Acid 8.5 mg/dL (3.7-8.7)
== END ==
LOC: LABWHC1 15:01
PROVIDERS: ATTEND Podiatrist Foot & Ankle Surgery
DX: D64.9 Anemia, unspecified (principal); M10.9 Gout, unspecified; M19.90 Unspecified osteoarthritis, unspecified site
CPT/HCPCS: 36415; 84550; 85025; 85652; 86140; 86431

== ENCOUNTER → 2020-02-22 | Outpatient (CLI) | payer MEDICARE ==
--- NOTE | 2020-02-22 14:11 | US ---
EXAMINATION TYPE: US kidneys/renal and bladder DATE OF EXAM: 02/22/2020 COMPARISON: NONE CLINICAL HISTORY: N28.9 DISORDER OF KIDNEY AND URETER. kidney lesion EXAM MEASUREMENTS: Right Kidney: 10.7 x 4.9 x 4.1 cm Left Kidney: 10.8 x 4.7 x 4.3 cm Right Kidney: cystic areas noted, largest = 1.6 x 1.4 x 1.5cm Left Kidney: cystic area lower pole = 3.2 x 2.9 x 2.8cm Bladder: appears wnl Bilateral Jets seen: no IMPRESSION: 1. Bilateral simple appearing renal cysts.
== END | disposition home or self-care (01) ==
LOC: RADUSWWP 12:09
PROVIDERS: ATTEND Family Medicine
DX: N28.1 Cyst of kidney, acquired (principal)
CPT/HCPCS: 76770

== ENCOUNTER 2020-07-16 08:45 | Emergency (ER) | payer MEDICARE ==
[2020-07-16 08:52] VITALS: RESP 18; TEMP 98
[2020-07-16 09:22] LABS: Basophils # (A) 0.1 k/uL (0-0.2); Basophils % (A) 1 %; Eosinophils # (A) 0.2 k/uL (0-0.7); Eosinophils % (A) 2 %; HCT 42.4 % (39.0-53.0); HGB 13.9 gm/dL (13.0-17.5); Lymphocytes # (A) 1.1 k/uL (1.0-4.8); Lymphocytes % (A) 13 %; MCH 30.7 pg (25.0-35.0); MCHC 32.6 g/dL (31.0-37.0); Mean Platelet Volume 7.2; Monocytes # (A) 0.4 k/uL (0-1.0); Monocytes % (A) 5 %; Neutrophils # (A) 6.6 k/uL (1.3-7.7); Neutrophils % (A) 77 %; Platelet Count 253 k/uL (150-450); RBC 4.51 m/uL (4.30-5.90); RDW 13.8 % (11.5-15.5); WBC 8.5 k/uL (3.8-10.6)
--- NOTE | 2020-07-16 09:24 | ED ---
Recheck HPI - General Chief Complaint: Recheck/Abnormal Lab/Rx Stated Complaint: high potassium per [facility] Time Seen by Provider: 07/16/20 08:54 Source: patient, RN notes reviewed Mode of arrival: ambulatory Limitations: no limitations - History of Present Illness Initial Comments: Patient is a very pleasant 84-year-old white male opening by his with h istory of hearing loss, wears hearing aids. He came to the emergency department today because of abnormal labs on July 14. His potassium was 6.0. Today he stated that he felt fine had no issues. noted no change. He appeared in no distress or pain. Patient was diagnosed with A. fib and July 2018. He denied any chest pain, palpitations, shortness of breath, headache, nausea, vomiting, diarrhea, constipation, lightheadedness, dizziness, change in vision, fever, fatigue, chills, night sweats. - Related Data Home Medications Medication Instructions Recorded Confirmed Aspirin [[place] Aspirin EC] 81 mg PO HS 08/06/18 08/06/18 Cholecalciferol [Vitamin D3 (25 1,000 unit PO DAILY 08/06/18 08/06/18 Mcg = 1000 Iu)] Cholesterol Vitamin (Unknown) 1 tab PO DAILY 08/06/18 08/06/18 Cyanocobalamin (Vitamin B-12) 1,000 mcg PO DAILY 08/06/18 08/06/18 [Vitamin B-12] Lisinopril [Prinivil] 10 mg PO DAILY 08/06/18 08/06/18 Vit C/E/Zn/Coppr/Lutein/Zeaxan 1 tab PO BID 08/06/18 08/06/18 [Preservision Areds 2 Softgel] Previous Rx's Medication Instructions Recorded Apixaban [Eliquis] 2.5 mg PO BID #60 tablet 08/08/18 carvediloL [Coreg] 6.25 mg PO BID-W/MEALS #60 tab 08/08/18 Allergies Allergy/AdvReac Type Severity Reaction Status Date / Time No Known Allergies Allergy Verified 07/16/20 08:49 Review of Systems ROS Statement: Those systems with pertinent positive or pertinent negative responses have been documented in the HPI. ROS Other: All systems not noted in ROS Statement are negative. Past Medical History Past Medical History: Hypertension Additional Past Medical History / Comment(s): athritis History of Any Multi-Drug Resistant Organisms: None Reported Past Surgical History: Joint Replacement, Orthopedic Surgery Additional Past Surgical History / Comment(s): hip replacement Past Psychological History: No Psychological Hx Reported Smoking Status: Never smoker Past Alcohol Use History: None Reported Past Drug Use History: None Reported General Exam Limitations: no limitations General appearance: alert, in no apparent distress Head exam: Present: atraumatic, normocephalic, normal inspection Eye exam: Present: normal appearance, PERRL, EOMI. Absent: scleral icterus, conjunctival injection, periorbital swelling ENT exam: Present: normal exam, other (Decreased hearing bilaterally hearing aids in place) Neck exam: Present: normal inspection. Absent: tenderness, meningismus, lymphadenopathy Respiratory exam: Present: normal lung sounds bilaterally. Absent: respiratory distress, wheezes, rales, rhonchi, stridor Cardiovascular Exam: Present: regular rate, normal rhythm, normal heart sounds. Absent: systolic murmur, diastolic murmur, rubs, gallop, clicks Extremities exam: Present: normal inspection, full ROM, normal capillary refill. Absent: tenderness, pedal edema, joint swelling, calf tenderness Neurological exam: Present: alert, oriented X3, CN II-XII intact Psychiatric exam: Present: normal affect, normal mood Skin exam: Present: warm, dry, intact, normal color. Absent: rash Course Vital Signs 07/16/20 08:49 Temperature 98 F Pulse Rate 72 Respiratory 18 Rate Blood Pressure 122/77 O2 Sat by Pulse 90 L Oximetry Medical Decision Making - Medical Decision Making 84-year-old white male follow-up for abnormal labs. CBC, CMP, magnesium, EKG ordered. Potassium came back at 5.4, other labs were mildly elevated possibly due to dehydration. ordered a 500 mL bolus of normal saline. - Lab Data Result diagrams: 07/16/20 09:18 07/16/20 09:18 Lab Results 07/16/20 07/16/20 Range/Units 09:18 09:18 WBC 8.5 (3.8-10.6) k/uL RBC 4.51 (4.30-5.90) m/uL Hgb 13.9 (13.0-17.5) gm/dL Hct 42.4 (39.0-53.0) % MCV 94.0 (80.0-100.0) fL MCH 30.7 (25.0-35.0) pg MCHC 32.6 (31.0-37.0) g/dL RDW 13.8 (11.5-15.5) % Plt Count 253 (150-450) k/uL MPV 7.2 Neutrophils % 77 % Lymphocytes % 13 % Monocytes % 5 % Eosinophils % 2 % Basophils % 1 % Neutrophils # 6.6 (1.3-7.7) k/uL Lymphocytes # 1.1 (1.0-4.8) k/uL Monocytes # 0.4 (0-1.0) k/uL Eosinophils # 0.2 (0-0.7) k/uL Basophils # 0.1 (0-0.2) k/uL Sodium 141 (137-145) mmol/L Potassium 5.4 H (3.5-5.1) mmol/L Chloride 109 H (98-107) mmol/L Carbon Dioxide 25 (22-30) mmol/L Anion Gap 7 mmol/L BUN 34 H (9-20) mg/dL Creatinine 1.53 H (0.66-1.25) mg/dL Est GFR (CKD-EPI)AfAm 48 (>60 ml/min/1.73 sqM) Est GFR (CKD-EPI)NonAf 41 (>60 ml/min/1.73 sqM) Glucose 109 H (74-99) mg/dL Calcium 10.3 H (8.4-10.2) mg/dL Magnesium 2.3 (1.6-2.3) mg/dL Total Bilirubin 0.7 (0.2-1.3) mg/dL AST 23 (17-59) U/L ALT 15 (4-49) U/L Alkaline Phosphatase 78 (38-126) U/L Total Protein 7.0 (6.3-8.2) g/dL Albumin 4.0 (3.5-5.0) g/dL - EKG Data -: EKG Interpreted by Me (And Dr. Mccrary) EKG Comments: Ventricular rate 77 bpm, QR alevism 142 ms, QT/QTC 430/186 ms, atrial fibrillation with premature ventricular or aberrantly conducted complexes, right bundle branch block, inferior infarct age undetermined age. EKG is similar to previous studies. Disposition Clinical Impression: Hyperkalemia, Dehydration Disposition: HOME SELF-CARE Condition: Stable Instructions (If sedation given, give patient instructions): Dehydration (ED), Hyperkalemia (ED) Additional Instructions: Please return to the Emergency Department if symptoms worsen or any other c oncerns. Patient educated on the importance of drinking more water. Is patient prescribed a controlled substance at d/c from ED?: No Referrals: [facility],Clinic [Primary Care Provider] - 1-2 days Time of Disposition: 11:18
[2020-07-16 09:54] LABS: Calcium 10.3 mg/dL (8.4-10.2); Magnesium 2.3 mg/dL (1.6-2.3); Potassium 5.4 mmol/L (3.5-5.1); Total Bilirubin 0.7 mg/dL (0.2-1.3)
[2020-07-16] MEDS ORDERED: SODIUM CHLORIDE 0.9% 500 ML 500 ML IV ONE (09:57)
[2020-07-16 10:54] VITALS: BP 128/84; PULSE 68
== END 2020-07-16 11:36 | disposition home or self-care (01) ==
LOC: EC 08:45
DX: E87.5 Hyperkalemia (principal); E86.0 Dehydration; I48.91 Unspecified atrial fibrillation; I10 Essential (primary) hypertension; M19.90 Unspecified osteoarthritis, unspecified site; Z79.899 Other long term (current) drug therapy; Z79.82 Long term (current) use of aspirin; Z96.649 Presence of unspecified artificial hip joint
CPT/HCPCS: 36415; 80053; 83735; 85025; 93005; 96360; 99284

== ENCOUNTER 2020-08-24 23:20 | Emergency (ER) | payer MEDICARE ==
[2020-08-24 23:28] VITALS: RESP 18; TEMP 99.2
--- NOTE | 2020-08-24 23:56 | ED ---
Back Pain HPI - General Chief Complaint: Back Pain/Injury Stated Complaint: back pain Time Seen by Provider: 08/24/20 23:25 Source: EMS Limitations: no limitations - History of Present Illness Initial Comments: This patient is an 84-year-old man who presents to be evaluated for lumbar back pain that is radiating to the hips on both sides. The patient states that he has had approximately 2 years of this pain and sees Dr. Cote, who has told him that he has sciatic nerve pain. The patient states that is been flaring up now for number of days. He has been taking Tylenol arthritis at home without much relief. The patient states that when he was not able sleep tonight they called the ambulance and he did receive a dose of morphine which has given him good relief now. Patient denies change in bladder or bowel function. Denies weakness or numbness of the legs though he does have worsening pain if he attempts to get up and walk. MD Complaint: back pain Onset/Timin -: year(s) Similar Symptoms Previously: Yes Place: home Radiation: groin, buttocks Severity: severe Quality: aching Consistency: constant Improves With: medication Worsens With: none Associated Symptoms: difficulty urinating Treatments Prior to Arrival: acetaminophen, other medications - Related Data Home Medications Medication Instructions Recorded Confirmed Aspirin [[place] Aspirin EC] 81 mg PO HS 08/06/18 07/16/20 Cholecalciferol [Vitamin D3 (25 2,000 unit PO DAILY 08/06/18 07/16/20 Mcg = 1000 Iu)] Lisinopril [Prinivil] 10 mg PO DAILY 08/06/18 07/16/20 Acetaminophen [Tylenol Arthritis] 650 mg PO DAILY PRN 07/16/20 07/16/20 Cyanocobalamin [Vitamin B-12] 500 mcg PO DAILY 07/16/20 07/16/20 Krill/Om-3/Dha/Epa/Phospho/Ast 1 cap PO DAILY 07/16/20 07/16/20 [[place]-3 Krill 350 mg] Previous Rx's Medication Instructions Recorded Apixaban [Eliquis] 2.5 mg PO BID #60 tablet 08/08/18 carvediloL [Coreg] 6.25 mg PO BID-W/MEALS #60 tab 08/08/18 Acetaminophen-Codeine 300-30mg 1 tab PO Q4H PRN #20 tablet 08/25/20 [Tylenol w/codeine #3] predniSONE [Deltasone] 20 mg PO BID #8 tab 08/25/20 Allergies Allergy/AdvReac Type Severity Reaction Status Date / Time No Known Allergies Allergy Verified 08/24/20 23:28 Review of Systems ROS Statement: Those systems with pertinent positive or pertinent negative responses have been documented in the HPI. ROS Other: All systems not noted in ROS Statement are negative. Constitutional: Denies: fever, chills Respiratory: Denies: cough, dyspnea Cardiovascular: Denies: chest pain, palpitations Gastrointestinal: Denies: abdominal pain, vomiting, diarrhea, constipation Genitourinary: Denies: dysuria, hematuria Musculoskeletal: Reports: as per HPI, back pain Skin: Denies: rash Neurological: Denies: headache, weakness, numbness Past Medical History Past Medical History: Hypertension Additional Past Medical History / Comment(s): athritis History of Any Multi-Drug Resistant Organisms: None Reported Past Surgical History: Joint Replacement, Orthopedic Surgery Additional Past Surgical History / Comment(s): hip replacement Past Psychological History: No Psychological Hx Reported Smoking Status: Never smoker Past Alcohol Use History: None Reported Past Drug Use History: None Reported General Exam Limitations: no limitations General appearance: alert, in no apparent distress Head exam: Present: atraumatic, normocephalic Eye exam: Present: normal appearance. Absent: scleral icterus, conjunctival injection Neck exam: Present: normal inspection, full ROM Respiratory exam: Present: normal lung sounds bilaterally. Absent: respiratory distress, wheezes, rales, rhonchi, stridor Cardiovascular Exam: Present: regular rate, normal rhythm, normal heart sounds. Absent: systolic murmur, diastolic murmur, rubs, gallop GI/Abdominal exam: Present: soft. Absent: distended, tenderness, guarding, rebound, rigid, mass Extremities exam: Present: normal inspection, normal capillary refill, pedal edema (Trace of edema at the feet bilaterally). Absent: calf tenderness Neurological exam: Present: alert, reflexes normal. Absent: motor sensory deficit Skin exam: Present: warm, dry, intact, normal color. Absent: rash Course Vital Signs 08/24/20 23:21 Temperature 99.2 F Pulse Rate 65 Respiratory 18 Rate Blood Pressure 85/56 O2 Sat by Pulse 93 L Oximetry Disposition Clinical Impression: Chronic low back pain Disposition: HOME SELF-CARE Condition: Good Instructions (If sedation given, give patient instructions): Lumbar Radiculopathy (ED) Prescriptions: predniSONE [Deltasone] 20 mg PO BID #8 tab Acetaminophen-Codeine 300-30mg [Tylenol w/codeine #3] 1 tab PO Q4H PRN #20 tablet PRN Reason: Pain Is patient prescribed a controlled substance at d/c from ED?: Yes Referrals: Johan Duckworth MD [Primary Care Provider] - 1-2 days
--- NOTE | 2020-08-25 00:59 | CT ---
EXAM: CT Lumbar Spine Without Intravenous Contrast CLINICAL HISTORY: ITS.REASON CT Reason: pain TECHNIQUE: Axial computed tomography images of the lumbar spine without intravenous contrast. CTDI is 45.284 mGy and DLP is 1623.6 mGy-cm. This CT exam was performed using one or more of the following dose reduction techniques: automated exposure control, adjustment of the mA and/or kV according to patient size, and/or use of iterative reconstruction technique. COMPARISON: No relevant prior studies available. FINDINGS: Vertebrae: Unremarkable. No acute fracture. Discs/spinal canal/neural foramina: No acute findings. No spinal canal stenosis. Moderate degenerative disc disease at L3/4 and L5/S1 with vacuum disc posterior disc bulge resulting in no significant spinal canal narrowing. Mild bilateral foraminal narrowing bilaterally at L3/L4 and L5/S1. Diffuse osteopenia. Soft tissues: Unremarkable. Calcific atherosclerotic plaque of the artery branches. IMPRESSION: No acute fractures or spondylolisthesis of the lumbar spine. Moderate degenerative disease at L3/L4 and L5/S1. No significant spinal canal narrowing.
--- NOTE | 2020-08-25 01:01 | XR ---
EXAM: XR Pelvis, 1 or 2 Views CLINICAL HISTORY: ITS.REASON XR Reason: pain TECHNIQUE: Frontal view of the pelvis. COMPARISON: No relevant prior studies available. FINDINGS: Bones/joints: Unremarkable. No acute fracture. No dislocation. Right total hip arthroplasty place. Moderate degenerative changes of the left hip with superolateral joint space narrowing and femoral osteophytes. No significant widening of the sacroiliac joints and pubic symphysis. Soft tissues: Unremarkable. IMPRESSION: No acute pelvic fractures.
[2020-08-25] MEDS ORDERED: methylPREDNISolone SOD SUCCI 125 MG/2 ML VIAL IM STA (01:17)
[2020-08-25 01:43] VITALS: BP 88/58; PULSE 70
== END 2020-08-25 01:45 | disposition home or self-care (01) ==
LOC: EC 23:20
DX: G89.29 Other chronic pain (principal); M54.5 Low back pain; I10 Essential (primary) hypertension; Z79.01 Long term (current) use of anticoagulants; Z79.52 Long term (current) use of systemic steroids; Z79.82 Long term (current) use of aspirin
CPT/HCPCS: 72170; 72131; 99283; 96372; J2930

== ENCOUNTER → 2021-01-23 | Outpatient (CLI) | payer MEDICARE ==
--- NOTE | 2021-01-23 13:36 | CT ---
EXAMINATION TYPE: CT abdomen pelvis wo con DATE OF EXAM: 01/23/2021 COMPARISON: None INDICATION: Abdominal pain and constipation. DLP: 713.9 mGycm, Automated exposure control for dose reduction was used. CONTRAST: 0 mL of Isovue 300. Study performed without Oral Contrast TECHNIQUE: Axial images were obtained from above the diaphragm to the pubic rami in the axial plane a t 5 mm thick sections. Reconstructed images are reviewed on the computer in the coronal plane. FINDINGS: Limited CT sections are obtained the lung bases. There is a small right pleural effusion. Smaller ef fusions at the left base. Some compressive atelectasis adjacent to the left pleural effusion. Coronar y artery calcification is present. CT ABDOMEN: Liver: There is a 1.7 cm ill-defined hypodensity within the superior right lobe liver. Series 3 image 39. Additional evaluation with ultrasound is recommended. Small amount of ascites is adjacent to the liver. Spleen: Normal Pancreas: Poorly visualized. This appears severely atrophic Adrenal glands: The adrenal glands are normal. Gallbladder: Normal Kidneys: No masses are evident. No hydronephrosis is present. There is a cyst on the inferior pole left kidney measuring 3.2 cm and 7 Hounsfield units. Nonobstructing renal stones in the anterior infe rior pole right kidney measures 0.2 cm. Aorta: Vascular calcification is within the aorta. Inferior vena cava: Normal. CT PELVIS: There appear to be small inguinal adenopathy. A left inguinal hernia containing fluid appe ars to be present. No loops of bowel are involved. Series 3 image 145. Loops of bowel within the abdomen and pelvis are normal. Diverticular changes are within the sigmoid colon. Some descending colon diverticuli are evident. This study is performed without oral contras t limiting bowel evaluation. Appendix: Normal as visualized. Urinary bladder: Normal. Genitourinary structures: Prostate appears of the prominent Osseous structures: No suspicious lytic or sclerotic lesions. Left hip prosthesis causes beam hardeni ng artifact and some limitation. IMPRESSIONS: 1. Ill-defined hypodensity superior right lobe liver. Additional evaluation with ultrasound is recom mended. 2. Diverticulosis without acute diverticulitis. 3. Left renal cyst. 4. Nonobstructing right renal stone. 5. Pancreas atrophy. 6. Ascites. 7. Bilateral pleural effusions
== END | disposition home or self-care (01) ==
LOC: RADCTMAIN 12:44
PROVIDERS: ATTEND Family Medicine
DX: N20.0 Calculus of kidney (principal); N28.1 Cyst of kidney, acquired; R18.8 Other ascites; K57.90 Diverticulosis of intestine, part unspecified, without perforation or abscess without bleeding
CPT/HCPCS: 74176

== ENCOUNTER → 2021-05-03 | Outpatient (CLI) | payer MEDICARE ==
--- NOTE | 2021-05-03 09:52 | US ---
EXAMINATION TYPE: US liver DATE OF EXAM: 05/03/2021 COMPARISON: CT 01/23/2021 CLINICAL HISTORY: 85-year-old male R16.0 HEPATOMEGALY. Pain, abnormal CT TECHNIQUE: Multiple sonographic images of the right upper quadrant are obtained. FINDINGS: EXAM MEASUREMENTS: Liver Length: 18.0 cm Gallbladder Wall: 0.4 cm CBD: 0.3 cm Right Kidney: 10.4 x 4.9 x 5.3 cm Pancreas: Most of the pancreas is visualized and shows no gross abnormality. Liver: Mildly enlarged. Cyst left medial lobe= 2.0 x 1.7 x 1.9 cm. There is a lobulated hypoechoic l esion right lobe posteriorly and superiorly with small septations= 1.8 x 1.5 x 1.7 cm Gallbladder: lumen clear, wall is mildly thickened and may be secondary to the ascites Evidence for sonographic Grey's sign: No CBD: wnl Right Kidney: Cortical thinning, no evidence of hydro, cyst mid/lateral= 1.4 cm, lower pole gassed o ut Small amount of ascites, right pleural effusion IMPRESSION: 1. A 1.8 cm hypoechoic lesion with possible septations at the right hepatic dome. Suspect a mildly co mplex cyst with debris. This corresponds to the area on CT. As it is well seen on ultrasound, six-mon follow-up ultrasound recommended to reassess. 2. Mild hepatomegaly at 18.0 cm. Benign 2.0 cm cyst in the left lobe. 3. Mild perihepatic ascites along with a right pleural effusion. Correlate as to etiology.
== END | disposition home or self-care (01) ==
LOC: RADUSWWP 07:01
PROVIDERS: ATTEND Family Medicine
DX: K76.89 Other specified diseases of liver (principal); R16.0 Hepatomegaly, not elsewhere classified; N28.1 Cyst of kidney, acquired; R18.8 Other ascites
CPT/HCPCS: 76705

== ENCOUNTER 2021-07-26 10:30 | Inpatient (IN) | payer MEDICARE ==
--- NOTE | 2021-07-26 11:41 | XR ---
EXAMINATION TYPE: XR chest 2V DATE OF EXAM: 07/26/2021 COMPARISON: NONE HISTORY: Shortness of breath TECHNIQUE: Frontal and lateral views of the chest are obtained. FINDINGS: Scattered senescent parenchymal changes noted. Hyperinflation compatible with COPD. Left lower lobe infiltrate, atelectasis and/or effusion. Correlate clinically and progress studies ar e recommended. Heart size is stable. Mediastinal structures are stable and grossly unremarkable. No evidence for hilar prominence. Degenerative changes dorsal spine. IMPRESSION: 1. Left lower lobe infiltrate, atelectasis and/or effusion. Correlate clinically and progress studies are recommended.
[2021-07-26 11:43] LABS: Basophils % (A) 1 %; Eosinophils # (A) 0.1 k/uL (0-0.7); Eosinophils % (A) 1 %; HCT 43.4 % (39.0-53.0); HGB 13.4 gm/dL (13.0-17.5); Hypochromasia Moderate; Lymphocytes # (A) 0.9 k/uL (1.0-4.8); Lymphocytes % (A) 12 %; MCH 30.6 pg (25.0-35.0); MCV 98.8 fL (80.0-100.0); Mean Platelet Volume 8.2; Monocytes # (A) 0.5 k/uL (0-1.0); Monocytes % (A) 6 %; Neutrophils # (A) 5.7 k/uL (1.3-7.7); Neutrophils % (A) 79 %; Platelet Count 201 k/uL (150-450); RBC 4.39 m/uL (4.30-5.90); RDW 13.9 % (11.5-15.5); WBC 7.3 k/uL (3.8-10.6)
[2021-07-26 12:00] LABS: INR 1.2 (<1.2); Partial Thromboplastin Time 27.8 sec (22.0-30.0); Prothrombin Time 12.4 sec (9.0-12.0)
[2021-07-26 12:08] LABS: Albumin 3.6 g/dL (3.5-5.0); Calcium 9.3 mg/dL (8.4-10.2); Magnesium 1.9 mg/dL (1.6-2.3); Potassium 4.9 mmol/L (3.5-5.1); Total Bilirubin 1.3 mg/dL (0.2-1.3); Total Protein 6.8 g/dL (6.3-8.2)
--- NOTE | 2021-07-26 12:18 | ED ---
General Adult HPI - General Chief complaint: Shortness of Breath Stated complaint: Fluid in Lungs Time Seen by Provider: 07/26/21 10:41 Source: patient, RN notes reviewed Mode of arrival: ambulatory Limitations: no limitations - History of Present Illness Initial comments: 85-year-old male presents emergency Department with chief complaint of abnormal CT. Patient states he did have increasing abdominal swelling, abdominal discomfort and shortness of breath. Patient was found to have bilateral pleural effusions, anasarca and ascites type changes on CT. Patient has no history of CHF he states never had any like this in the past. He has meant is not on diuretics for something the past and states he had some issues with that. Patient denies any fevers or chills he does complain of some abdominal pain but no chest pain he states he noticed swelling of his lower extremity with some blistering. Patient was sent in after abnormal CT for further evaluation and admission. - Related Data Home Medications Medication Instructions Recorded Confirmed Aspirin [[place] Aspirin EC] 81 mg PO HS 08/06/18 07/16/20 Cholecalciferol [Vitamin D3 (25 2,000 unit PO DAILY 08/06/18 07/16/20 Mcg = 1000 Iu)] Lisinopril [Prinivil] 10 mg PO DAILY 08/06/18 07/16/20 Acetaminophen [Tylenol Arthritis] 650 mg PO DAILY PRN 07/16/20 07/16/20 Cyanocobalamin [Vitamin B-12] 500 mcg PO DAILY 07/16/20 07/16/20 Krill/Om-3/Dha/Epa/Phospho/Ast 1 cap PO DAILY 07/16/20 07/16/20 [Megared [place]-3 Krill 350 mg] Previous Rx's Medication Instructions Recorded Apixaban [Eliquis] 2.5 mg PO BID #60 tablet 08/08/18 carvediloL [Coreg] 6.25 mg PO BID-W/MEALS #60 tab 08/08/18 Acetaminophen-Codeine 300-30mg 1 tab PO Q4H PRN #20 tablet 08/25/20 [Tylenol w/codeine #3] predniSONE [Deltasone] 20 mg PO BID #8 tab 08/25/20 Allergies Allergy/AdvReac Type Severity Reaction Status Date / Time No Known Allergies Allergy Verified 07/26/21 10:37 Review of Systems ROS Statement: Those systems with pertinent positive or pertinent negative responses have been documented in the HPI. ROS Other: All systems not noted in ROS Statement are negative. Past Medical History Past Medical History: Hypertension Additional Past Medical History / Comment(s): athritis History of Any Multi-Drug Resistant Organisms: None Reported Past Surgical History: Joint Replacement, Orthopedic Surgery Additional Past Surgical History / Comment(s): hip replacement Past Psychological History: No Psychological Hx Reported Smoking Status: Never smoker Past Alcohol Use History: None Reported Past Drug Use History: None Reported General Exam Limitations: no limitations General appearance: alert, in no apparent distress Head exam: Present: atraumatic, normocephalic, normal inspection Eye exam: Present: normal appearance, PERRL, EOMI. Absent: scleral icterus, conjunctival injection, periorbital swelling ENT exam: Present: normal exam, normal oropharynx, mucous membranes moist Neck exam: Present: normal inspection, full ROM. Absent: tenderness, meningismus, lymphadenopathy Respiratory exam: Present: rales, decreased breath sounds. Absent: normal lung sounds bilaterally, respiratory distress, wheezes, rhonchi, stridor Cardiovascular Exam: Present: regular rate, normal rhythm, normal heart sounds. Absent: systolic murmur, diastolic murmur, rubs, gallop, clicks GI/Abdominal exam: Present: soft, distended, tenderness, normal bowel sounds. Absent: guarding, rebound, rigid Extremities exam: Present: pedal edema Neurological exam: Present: alert Skin exam: Present: warm, dry, intact, normal color. Absent: rash Course Vital Signs 07/26/21 07/26/21 07/26/21 10:32 12:00 12:30 Temperature 97.6 F Pulse Rate 80 74 68 Respiratory 24 22 22 Rate Blood Pressure 113/73 104/79 112/83 O2 Sat by Pulse 100 100 100 Oximetry Medical Decision Making - Medical Decision Making 85-year-old presented for abnormal CT CT showed evidence of anasarca, ascites and bilateral pleural effusion patient is a large pleural effusion on the left cause increased dyspnea. Patient's last EF reportedly was around 20%. Patient's BMP is 14,300 with elevated troponin case discussed with Dr. Yarbrough will be admitted with request of cardiology and pulmonary evaluation - Lab Data Result diagrams: 07/26/21 11:20 07/26/21 11:20 Lab Results 0207/26/21 07/26/21 Range/Units 11:20 11:20 11:20 WBC 7.3 (3.8-10.6) k/uL RBC 4.39 (4.30-5.90) m/uL Hgb 13.4 (13.0-17.5) gm/dL Hct 43.4 (39.0-53.0) % MCV 98.8 (80.0-100.0) fL MCH 30.6 (25.0-35.0) pg MCHC 31.0 (31.0-37.0) g/dL RDW 13.9 (11.5-15.5) % Plt Count 201 (150-450) k/uL MPV 8.2 Neutrophils % 79 % Lymphocytes % 12 % Monocytes % 6 % Eosinophils % 1 % Basophils % 1 % Neutrophils # 5.7 (1.3-7.7) k/uL Lymphocytes # 0.9 L (1.0-4.8) k/uL Monocytes # 0.5 (0-1.0) k/uL Eosinophils # 0.1 (0-0.7) k/uL Basophils # 0.0 (0-0.2) k/uL Hypochromasia Moderate PT 12.4 H (9.0-12.0) sec INR 1.2 H (<1.2) APTT 27.8 (22.0-30.0) sec Sodium 139 (137-145) mmol/L Potassium 4.9 (3.5-5.1) mmol/L Chloride 102 (98-107) mmol/L Carbon Dioxide 29 (22-30) mmol/L Anion Gap 8 mmol/L BUN 35 H (9-20) mg/dL Creatinine 1.17 (0.66-1.25) mg/dL Est GFR (CKD-EPI)AfAm 65 (>60 ml/min/1.73 sqM) Est GFR (CKD-EPI)NonAf 57 (>60 ml/min/1.73 sqM) Glucose 98 (74-99) mg/dL Plasma Lactic Acid Pedro (0.7-2.0) mmol/L Calcium 9.3 (8.4-10.2) mg/dL Magnesium 1.9 (1.6-2.3) mg/dL Total Bilirubin 1.3 (0.2-1.3) mg/dL AST 28 (17-59) U/L ALT 17 (4-49) U/L Alkaline Phosphatase 143 H (38-126) U/L Troponin I (0.000-0.034) ng/mL NT-Pro-B Natriuret Pep pg/mL Total Protein 6.8 (6.3-8.2) g/dL Albumin 3.6 (3.5-5.0) g/dL Coronavirus (PCR) (Not Detectd) 07/26/21 07/26/21 07/26/21 Range/Units 11:20 11:20 11:20 WBC (3.8-10.6) k/uL RBC (4.30-5.90) m/uL Hgb (13.0-17.5) gm/dL Hct (39.0-53.0) % MCV (80.0-100.0) fL MCH (25.0-35.0) pg MCHC (31.0-37.0) g/dL RDW (11.5-15.5) % Plt Count (150-450) k/uL MPV Neutrophils % % Lymphocytes % % Monocytes % % Eosinophils % % Basophils % % Neutrophils # (1.3-7.7) k/uL Lymphocytes # (1.0-4.8) k/uL Monocytes # (0-1.0) k/uL Eosinophils # (0-0.7) k/uL Basophils # (0-0.2) k/uL Hypochromasia PT (9.0-12.0) sec INR (<1.2) APTT (22.0-30.0) sec Sodium (137-145) mmol/L Potassium (3.5-5.1) mmol/L Chloride (98-107) mmol/L Carbon Dioxide (22-30) mmol/L Anion Gap mmol/L BUN (9-20) mg/dL Creatinine (0.66-1.25) mg/dL Est GFR (CKD-EPI)AfAm (>60 ml/min/1.73 sqM) Est GFR (CKD-EPI)NonAf (>60 ml/min/1.73 sqM) Glucose (74-99) mg/dL Plasma Lactic Acid Pedro 1.5 (0.7-2.0) mmol/L Calcium (8.4-10.2) mg/dL Magnesium (1.6-2.3) mg/dL Total Bilirubin (0.2-1.3) mg/dL AST (17-59) U/L ALT (4-49) U/L Alkaline Phosphatase (38-126) U/L Troponin I 0.097 H* (0.000-0.034) ng/mL NT-Pro-B Natriuret Pep 45777 pg/mL Total Protein (6.3-8.2) g/dL Albumin (3.5-5.0) g/dL Coronavirus (PCR) (Not Detectd) 07/26/21 Range/Units 12:11 WBC (3.8-10.6) k/uL RBC (4.30-5.90) m/uL Hgb (13.0-17.5) gm/dL Hct (39.0-53.0) % MCV (80.0-100.0) fL MCH (25.0-35.0) pg MCHC (31.0-37.0) g/dL RDW (11.5-15.5) % Plt Count (150-450) k/uL MPV Neutrophils % % Lymphocytes % % Monocytes % % Eosinophils % % Basophils % % Neutrophils # (1.3-7.7) k/uL Lymphocytes # (1.0-4.8) k/uL Monocytes # (0-1.0) k/uL Eosinophils # (0-0.7) k/uL Basophils # (0-0.2) k/uL Hypochromasia PT (9.0-12.0) sec INR (<1.2) APTT (22.0-30.0) sec Sodium (137-145) mmol/L Potassium (3.5-5.1) mmol/L Chloride (98-107) mmol/L Carbon Dioxide (22-30) mmol/L Anion Gap mmol/L BUN (9-20) mg/dL Creatinine (0.66-1.25) mg/dL Est GFR (CKD-EPI)AfAm (>60 ml/min/1.73 sqM) Est GFR (CKD-EPI)NonAf (>60 ml/min/1.73 sqM) Glucose (74-99) mg/dL Plasma Lactic Acid Pedro (0.7-2.0) mmol/L Calcium (8.4-10.2) mg/dL Magnesium (1.6-2.3) mg/dL Total Bilirubin (0.2-1.3) mg/dL AST (17-59) U/L ALT (4-49) U/L Alkaline Phosphatase (38-126) U/L Troponin I (0.000-0.034) ng/mL NT-Pro-B Natriuret Pep pg/mL Total Protein (6.3-8.2) g/dL Albumin (3.5-5.0) g/dL Coronavirus (PCR) Not Detected (Not Detectd) Critical Care Time Critical Care Time: Yes Total Critical Care Time: 35 Disposition Clinical Impression: Atrial fibrillation, Acute exacerbation of CHF (congestive heart failure), Ascites, Elevated troponin, Dyspnea Disposition: ADMITTED IP TO THIS HOSP Condition: Serious Referrals: Johan Duckworth MD [Primary Care Provider] - 1-2 days
[2021-07-26] MEDS ORDERED: FUROSEMIDE 10 MG/ML 4 ML VIAL IV STA (13:04)
[2021-07-26] MEDS ORDERED: LOPERAMIDE 2 MG CAP PO PRN (13:32)
[2021-07-26] MEDS ORDERED: NALOXONE 0.4 MG/ML 1 ML VIAL IV PRN (13:32)
[2021-07-26] MEDS ORDERED: MAG HYDROX/AL HYDROX/SIMETH 30 ML CUP PO PRN (13:32)
[2021-07-26] MEDS ORDERED: ONDANSETRON 4 MG/2 ML VIAL IVP PRN (13:32)
[2021-07-26] MEDS ORDERED: ACETAMINOPHEN TAB 325 MG TAB PO PRN (13:32)
--- NOTE | 2021-07-26 13:39 | P.HPIM ---
History of Present Illness H&P Date: 07/26/21 85-year-old male with multiple medical problems including hypertension and likely congestive heart failure admitted to the hospital for increased shortness of breath and abnormal computed tomography scan of the lungs and abdomen patient was found to have pleural effusions and ascites patient states he gets short of breath with exertion Review of systems and systems has been reviewed all negative and positive findings as per history of present illness Constitutional: No acute distress, conversant, pleasant Eyes: Anicteric sclerae, moist conjunctiva, no lid-lag PERRLA ENMT: NC/AT Oropharynx clear, no erythema, exudates Neck: Supple, FROM, no masses, or JVD No carotid bruits No thyromegaly Lungs: crackly Cardiovascular: Heart regular in rate and rhythm, No murmurs, gallops, or rubs No peripheral edema Abdominal: Soft Nontender, no guarding, rebound or rigidity Abdomen moving with respiration Normoactive bowel sounds No hepatomegaly, No splenomegaly No palpable mass No abdominal wall hernia noted Skin: Normal temperature, tone, texture, turgor No induration No subcutaneous nodules No rash, lesions No ulcers Extremities: No digital cyanosis No clubbing Pedal pulses intact and symmetrical Radial pulses intact and symmetrical Normal gait and station No calf tenderness Psychiatric:Alert and oriented to person, place and time Appropriate affect Intact judgement Neuro: Muscles Strength 5/5 in all 4 extremities Sensation to light touch grossly present throughout Cranial nerves II-XII grossly intact No focal sensory deficits Likely acute on chronic congestive heart failure start the patient on IV Lasix Pleural effusions will consult pulmonology currently we'll start empiric antibiotics for lung infiltrates We'll also consult cardiology Generalized weakness Multiple medical problems Past Medical History Past Medical History: Hypertension Additional Past Medical History / Comment(s): athritis History of Any Multi-Drug Resistant Organisms: None Reported Past Surgical History: Joint Replacement, Orthopedic Surgery Additional Past Surgical History / Comment(s): hip replacement Past Psychological History: No Psychological Hx Reported Smoking Status: Never smoker Past Alcohol Use History: None Reported Past Drug Use History: None Reported Medications and Allergies Home Medications Medication Instructions Recorded Confirmed Type Aspirin [[place] Aspirin EC] 81 mg PO HS 08/06/18 07/16/20 History Cholecalciferol [Vitamin D3 (25 2,000 unit PO DAILY 08/06/18 07/16/20 History Mcg = 1000 Iu)] Lisinopril [Prinivil] 10 mg PO DAILY 08/06/18 07/16/20 History Apixaban [Eliquis] 2.5 mg PO BID #60 tablet 08/08/18 07/16/20 Rx carvediloL [Coreg] 6.25 mg PO BID-W/MEALS #60 tab 08/08/18 07/16/20 Rx Acetaminophen [Tylenol Arthritis] 650 mg PO DAILY PRN 07/16/20 07/16/20 History Cyanocobalamin [Vitamin B-12] 500 mcg PO DAILY 07/16/20 07/16/20 History Krill/Om-3/Dha/Epa/Phospho/Ast 1 cap PO DAILY 07/16/20 07/16/20 History [Megared [place]-3 Krill 350 mg] Acetaminophen-Codeine 300-30mg 1 tab PO Q4H PRN #20 tablet 08/25/20 Rx [Tylenol w/codeine #3] predniSONE [Deltasone] 20 mg PO BID #8 tab 08/25/20 Rx Allergies Allergy/AdvReac Type Severity Reaction Status Date / Time No Known Allergies Allergy Verified 07/26/21 13:14 Physical Exam Vitals: Vital Signs Temp Pulse Resp BP Pulse Ox 07/26/21 12:30 68 22 112/83 100 07/26/21 12:00 74 22 104/79 100 07/26/21 10:32 97.6 F 80 24 113/73 100 Intake and Output 07/25/21 07/26/21 07/26/21 22:59 06:59 14:59 Other: Weight 95.254 kg Results CBC & Chem 7: 07/26/21 11:20 07/26/21 11:20 Labs: Abnormal Lab Results - Last 24 Hours (Table) 07/26/21 07/26/21 07/26/21 Range/Units 11:20 11:20 11:20 Lymphocytes # 0.9 L (1.0-4.8) k/uL PT 12.4 H (9.0-12.0) sec INR 1.2 H (<1.2) BUN 35 H (9-20) mg/dL Alkaline Phosphatase 143 H (38-126) U/L Troponin I (0.000-0.034) ng/mL 07/26/21 Range/Units 11:20 Lymphocytes # (1.0-4.8) k/uL PT (9.0-12.0) sec INR (<1.2) BUN (9-20) mg/dL Alkaline Phosphatase (38-126) U/L Troponin I 0.097 H* (0.000-0.034) ng/mL
[2021-07-26] MEDS: AZITHROMYCIN 500 MG in SODIUM CHLORIDE 0.9% 250 ML IVPB SCH (14:38)
--- NOTE | 2021-07-26 16:22 | P.CNPUL ---
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 The patient presented emergency department because of worsening shortness of breath, exertional dyspnea and orthopnea. He was also having progressive increase in swelling in lower extremity bilaterally. No reported chest pain. No reported cough sputum production. No reported fever chills or night sweats. No angina. No palpitations. The patient has been fully vaccinated for COVID 19. His coronary stenting came back negative. Chest x-ray showed bilateral pleural effusion moderate-sized. tComputed tomography scan of the abdomen was done in the emergency department and it s howed generalized anasarca in the dependent portion. There bharat calcification of the coronary arteries. There was asymmetric elevation left hemidiaphragm. There was also evidence of bilateral pleural effusion moderate-sized with some atelectasis of the left lung base. There was moderate amount of atherosclerotic calcification of the abdominal aorta and iliac arteries.For now, the patient is being treated for decompensated CHF. The patient started on Lasix. Is producing adenoma adequate amount of urine output Review of Systems Constitutional: Reports fatigue, Reports weakness Eyes: denies as per HPI, denies blurred vision, denies bulging eye, denies decreased vision, denies diplopia, denies discharge, denies dry eye, denies irritation, denies itching, denies pain, denies photophobia, denies loss of peripheral vision, denies loss of vision, denies tunnel vision/blind spots Ears: deny: decreased hearing, ear discharge, earache, tinnitus Ears, nose, mouth and throat: Reports as per HPI Breasts: absent: as per HPI, gynecomastia Cardiovascular: Reports decreased exercise tolerance, Reports dyspnea on exertion, Reports irregular heart beat, Reports leg edema, Reports orthopnea Respiratory: Reports dyspnea Gastrointestinal: Reports as per HPI Genitourinary: Reports as per HPI Musculoskeletal: Reports as per HPI Musculoskeletal: bilateral: ankle swelling, absent: ankle pain, ankle stiffness Integumentary: Reports as per HPI Neurological: Reports as per HPI Psychiatric: Reports as per HPI Endocrine: Reports as per HPI Hematologic/Lymphatic: Reports as per HPI Allergic/Immunologic: Reports as per HPI Past Medical History Past Medical History: Atrial Fibrillation, Heart Failure (Systolic heart failure with an ejection fraction of 20-25%), Hypertension Additional Past Medical History / Comment(s): arthritis, aortic stenosis (mild), chronic atrial fibrillation History of Any Multi-Drug Resistant Organisms: None Reported Past Surgical History: Joint Replacement, Orthopedic Surgery Additional Past Surgical History / Comment(s): hip replacement Past Psychological History: No Psychological Hx Reported Smoking Status: Never smoker Past Alcohol Use History: None Reported Past Drug Use History: None Reported Medications and Allergies Home Medications Medication Instructions Recorded Confirmed Type Aspirin [[place] Aspirin EC] 81 mg PO HS 08/06/18 07/26/21 History Lisinopril [Prinivil] 10 mg PO DAILY 08/06/18 07/26/21 History Apixaban [Eliquis] 2.5 mg PO BID #60 tablet 08/08/18 07/26/21 Rx carvediloL [Coreg] 6.25 mg PO BID-W/MEALS #60 tab 08/08/18 07/26/21 Rx Cyanocobalamin [Vitamin B-12] 500 mcg PO DAILY 07/16/20 07/26/21 History Krill/Om-3/Dha/Epa/Phospho/Ast 1 cap PO DAILY 07/16/20 07/26/21 History [Megared [place]-3 Krill 350 mg] Cholecalciferol (Vitamin D3) 75 mcg PO DAILY 07/26/21 07/26/21 History [Vitamin D3 (3000 Iu)] Glucosamine/Chondr [place] A Sod [Oste[place] 1 tab PO DAILY 07/26/21 07/26/21 History Bi-Flex Caplet] HYDROcodone/APAP 7.5-325MG [[place] 1 tab PO DAILY PRN 07/26/21 07/26/21 History 7.5-325] Ibuprofen/Pseudoephedrine HCl 1 cap PO Q6H PRN 07/26/21 07/26/21 History [Advil Cold & Sinus Caplet] Lactulose 10 gm PO AC-TID 07/26/21 07/26/21 History Methocarbamol [Robaxin-750] 750 mg PO QID PRN 07/26/21 07/26/21 History Multivitamins, Thera [Multivitamin 1 tab PO DAILY 07/26/21 07/26/21 History (formulary)] Vit C/E/Zn/Coppr/Lutein/Zeaxan 1 cap PO DAILY 07/26/21 07/26/21 History [Preservision Areds 2 Softgel] Allergies Allergy/AdvReac Type Severity Reaction Status Date / Time No Known Allergies Allergy Verified 07/26/21 13:14 Physical Exam Vitals: Vital Signs Temp Pulse Resp BP Pulse Ox 07/26/21 12:30 68 22 112/83 100 07/26/21 12:00 74 22 104/79 100 07/26/21 10:32 97.6 F 80 24 113/73 100 Intake and Output 07/26/21 07/26/21 07/26/21 06:59 14:59 22:59 Other: Weight 95.254 kg Vital signs reviewed and stable. The patient is having some mildly labored breathing and the patient is currently on oxygen at 5 L per minute nasal cannula. Unable to lay down flat because of orthopnea. He is able to speak full sentences. General: non toxic, no distress, appears at stated age Derm: warm, dry Head: atraumatic, normocephalic, symmetric, positive JVDs Eyes: EOMI, no lid lag, anicteric sclera Mouth: no lip lesion, mucus membranes moist Cardiovascular: S1S2 reg, no murmur, positive posterior tibial pulse bilateral, heart sounds are distant. Lungs diminished breath sound bilaterally along with dullness to percussion. No significant wheezing. Abdominal: soft, nontender to palpation, no guarding, no appreciable organomegaly Ext: no gross muscle atrophy, no edema, no contractures Neuro: CN II-XI grossly intact, no focal neuro deficits Psych: Alert, oriented, appropriate affect Results - Laboratory Findings CBC and BMP: 07/26/21 11:20 07/26/21 11:20 PT/INR, D-dimer PT 12.4 sec (9.0-12.0) H 07/26/21 11:20 INR 1.2 (<1.2) H 07/26/21 11:20 Abnormal lab findings: Abnormal Labs 07/26/21 07/26/21 07/26/21 11:20 11:20 11:20 Lymphocytes # 0.9 L PT 12.4 H INR 1.2 H BUN 35 H Alkaline Phosphatase 143 H Troponin I 07/26/21 11:20 Lymphocytes # PT INR BUN Alkaline Phosphatase Troponin I 0.097 H* - Diagnostic Findings Chest x-ray: image reviewed Assessment and Plan Plan: 1 acute hypoxic respiratory failure, likely secondary to decompensated CHF currently on 5 L of oxygen by nasal cannula 2 acute systolic heart failure, ejection fraction is around 20-25% based on a previous echocardiogram 3 bilateral pleural effusion moderate-sized with a compressive atelectasis of the left lung base, likely secondary to CHF 4 diffuse anasarca with increased lower extremity edema secondary to above 5 chronic atrial fibrillation 6 questionable valvular heart disease with mild aortic stenosis 7 impaired hearing 8 hypertension Plan Weaned down the FiO2 as tolerated to maintain saturation above 90%. Currently on 5 L. Continue IV Lasix Repeat chest x-ray with the next 24-48 hours. We'll do a thoracentesis of there is no improvement in the symptoms or the size of the pleural effusions. Cardiology consultations Repeat echocardiogram Monitor electrolytes We'll follow
[2021-07-26] MEDS ORDERED: ASPIRIN 81 MG PO SCH (21:00)
[2021-07-26] MEDS: FUROSEMIDE 10 MG/ML 4 ML VIAL IV SCH (21:20)
[2021-07-26] MEDS: carvediloL 6.25 MG TAB PO SCH (21:20)
[2021-07-26] MEDS: APIXABAN 2.5 MG TABLET PO SCH (21:20)
[2021-07-27] MEDS: carvediloL 6.25 MG TAB PO SCH ×2 (06:37→16:32)
--- NOTE | 2021-07-27 08:13 | P.CRDCN ---
History of Present Illness Consult date: 07/27/21 History of present illness: The patient is an 85-year-old male who presents with abdominal discomfort and progressive dyspnea. He has a known history of severe nonischemic cardiomyopathy, chronic persistent atrial fibrillation and aortic valve disease. He has been followed on a regular basis by Dr. Evans. He denies any PND but he has peripheral edema and has been complaining of abdominal discomfort with some nausea but no vomiting. He denies any GI bleeding. He underwent a cardiac catheterization in 2018 and was found to have mild obstructive disease in his mo st recent echocardiogram in December 2020 showed an ejection fraction of 38% with a mean gradient of 20 mmHg across the aortic valve. He also had moderate mitral and tricuspid regurgitation with no significant pulmonary hypertension. Patient has chronic dyspnea on exertion worse recently. He denies any dizziness or palpitations, he denies any syncope. His peripheral edema is worse. His compliance with low salt intake is unclear. He has a history of hypertension, he is nondiabetic. He is a nonsmoker. His troponin was 0.097, 0.087, 0.092, NT proBNP 14,300 and his chest x-ray shows evidence of left sided effusion. His potassium is 4.9 His medication and home include Coreg 6.25 mg twice a day, Prinivil 10 mg daily, aspirin once a day and Eliquis milligrams twice a day. Review of system: Respiratory: No history of asthma, bronchitis , he has progressive dyspnea and occasional cough. GI: No vomiting. No history of peptic ulcer disease. No recent GI bleed. He has abdominal pain and nausea : No hematuria or dysuria. Nervous System: No stroke or seizure. Physical examination: Head: Normocephalic. Eyes: Sclerae nonicteric. Neck: Good carotid upstroke, no bruit, no jugular venous distention. Lungs: Decreased breath sounds at the bases with scattered rhonchi Heart:Irregular rate and rhythm, S1-S2, no S3, no rub. Systolic ejection murmur 2/6 mid peaking Abdomen: Soft nontender, positive bowel sounds no organomegaly. Extremities: 2+ bilateral edema, intact distal pulses EKG shows atrial fibrillation with right bundle branch block and left axis deviation. Impression: 1. Exacerbation of CHF in a patient with known history of severe cardiomyop athy, nonischemic 2. [ Chronic persistent atrial fibrillation, anticoagulated] 3. [ Aortic stenosis at least moderate] 4. [ Abdominal pain, unclear etiology, no evidence to suggest acute abdomen] 5. [ Pleural effusion secondary to the CHF] Plan: Patient will be started on IV diuresis, he will continue beta guille and anticoagulation. I will reinitiate an FANG inhibitor and add Aldactone. An ech ocardiogram with Doppler to be obtained. The elevation of the troponin represents a type II event related to the CHF. The patient has no history of significant obstructive CAD. Depending on the echocardiogram he may be a candidate to be evaluated for possible aortic valve replacement. The prognosis is guarded. Thank you for this consult we will follow with you. Past Medical History Past Medical History: Atrial Fibrillation, Heart Failure (Systolic heart failure with an ejection fraction of 20-25%), Hypertension Additional Past Medical History / Comment(s): arthritis, aortic stenosis (mild), chronic atrial fibrillation History of Any Multi-Drug Resistant Organisms: None Reported Past Surgical History: Joint Replacement, Orthopedic Surgery Additional Past Surgical History / Comment(s): hip replacement Past Psychological History: No Psychological Hx Reported Smoking Status: Never smoker Past Alcohol Use History: None Reported Past Drug Use History: None Reported Medications and Allergies Home Medications Medication Instructions Recorded Confirmed Type Aspirin [Geiger Aspirin EC] 81 mg PO HS 08/06/18 07/26/21 History Lisinopril [Prinivil] 10 mg PO DAILY 08/06/18 07/26/21 History Apixaban [Eliquis] 2.5 mg PO BID #60 tablet 08/08/18 07/26/21 Rx carvediloL [Coreg] 6.25 mg PO BID-W/MEALS #60 tab 08/08/18 07/26/21 Rx Cyanocobalamin [Vitamin B-12] 500 mcg PO DAILY 07/16/20 07/26/21 History Krill/Om-3/Dha/Epa/Phospho/Ast 1 cap PO DAILY 07/16/20 07/26/21 History [Megared [place]-3 Krill 350 mg] Cholecalciferol (Vitamin D3) 75 mcg PO DAILY 07/26/21 07/26/21 History [Vitamin D3 (3000 Iu)] Glucosamine/Chondr Burton A Sod [Osteo 1 tab PO DAILY 07/26/21 07/26/21 History Bi-Flex Caplet] HYDROcodone/APAP 7.5-325MG [[place] 1 tab PO DAILY PRN 07/26/21 07/26/21 History 7.5-325] Ibuprofen/Pseudoephedrine HCl 1 cap PO Q6H PRN 07/26/21 07/26/21 History [Advil Cold & Sinus Caplet] Lactulose 10 gm PO AC-TID 07/26/21 07/26/21 History Methocarbamol [Robaxin-750] 750 mg PO QID PRN 07/26/21 07/26/21 History Multivitamins, Thera [Multivitamin 1 tab PO DAILY 07/26/21 07/26/21 History (formulary)] Vit C/E/Zn/Coppr/Lutein/Zeaxan 1 cap PO DAILY 07/26/21 07/26/21 History [Preservision Areds 2 Softgel] Allergies Allergy/AdvReac Type Severity Reaction Status Date / Time No Known Allergies Allergy Verified 07/26/21 13:14 Physical Exam Vitals: Vital Signs Temp Pulse Pulse Resp BP BP Pulse Ox 07/27/21 04:00 70 18 124/80 94 L 07/27/21 02:00 78 18 07/26/21 21:23 63 18 107/77 97 07/26/21 19:20 73 22 94/74 94 L 07/26/21 19:00 68 20 151/84 100 07/26/21 18:00 73 20 104/73 100 07/26/21 17:00 63 20 104/92 99 07/26/21 15:30 59 L 20 89/55 100 07/26/21 15:10 98.2 F 78 18 118/74 93 L 07/26/21 12:30 68 22 112/83 100 07/26/21 12:00 74 22 104/79 100 07/26/21 10:32 97.6 F 80 24 113/73 100 Intake and Output 07/26/21 07/27/21 07/27/21 22:59 06:59 14:59 Intake Total 240 Output Total 700 Balance -460 Intake: Oral 240 Output: Urine 700 Other: Weight 95.254 kg Results 07/26/21 11:20 07/26/21 11:20 Cardiac Enzymes 07/26/21 07/26/21 07/26/21 Range/Units 11:20 11:20 14:43 AST 28 (17-59) U/L Troponin I 0.097 H* 0.087 H* (0.000-0.034) ng/mL 07/26/21 Range/Units 16:36 AST (17-59) U/L Troponin I 0.092 H* (0.000-0.034) ng/mL Coagulation 07/26/21 Range/Units 11:20 PT 12.4 H (9.0-12.0) sec APTT 27.8 (22.0-30.0) sec CBC 07/26/21 Range/Units 11:20 WBC 7.3 (3.8-10.6) k/uL RBC 4.39 (4.30-5.90) m/uL Hgb 13.4 (13.0-17.5) gm/dL Hct 43.4 (39.0-53.0) % Plt Count 201 (150-450) k/uL Comprehensive Metabolic Panel 07/26/21 Range/Units 11:20 Sodium 139 (137-145) mmol/L Potassium 4.9 (3.5-5.1) mmol/L Chloride 102 (98-107) mmol/L Carbon Dioxide 29 (22-30) mmol/L BUN 35 H (9-20) mg/dL Creatinine 1.17 (0.66-1.25) mg/dL Glucose 98 (74-99) mg/dL Calcium 9.3 (8.4-10.2) mg/dL AST 28 (17-59) U/L ALT 17 (4-49) U/L Alkaline Phosphatase 143 H (38-126) U/L Total Protein 6.8 (6.3-8.2) g/dL Albumin 3.6 (3.5-5.0) g/dL Current Medications Generic Name Dose Route Start Last Admin Trade Name Freq PRN Reason Stop Dose Admin Acetaminophen 650 mg 07/26/21 13:32 Acetaminophen Tab 325 Mg Tab PO Q6HR PRN Mild Pain or Fever > 100.5 Al Hydroxide/Mg Hydroxide 15 ml 07/26/21 13:32 Mag Hydrox/Al Hydrox/Simeth 30 Ml Cup PO Q6HR PRN Indigestion Apixaban 2.5 mg 07/26/21 21:00 07/26/21 21:20 Apixaban 2.5 Mg Tablet PO 2.5 mg BID MATTHEW Administration Protocol Carvedilol 6.25 mg 07/26/21 17:30 07/27/21 06:37 Carvedilol 6.25 Mg Tab PO 6.25 mg BID-W/MEALS MATTHEW Administration Furosemide 40 mg 07/26/21 21:00 07/26/21 21:20 Furosemide 10 Mg/Ml 4 Ml Vial IV 40 mg Q12HR MATTHEW Administration Ceftriaxone Sodium 1 gm/ 50 mls @ 100 mls/hr 07/26/21 13:45 07/26/21 14:23 Sodium Chloride IVPB 100 mls/hr Q24HR MATTHEW Administration Azithromycin 500 mg/ Sodium 250 mls @ 250 mls/hr 07/26/21 14:00 07/26/21 14:38 Chloride IVPB 250 mls/hr DAILY@1400 MATTHEW Administration Lisinopril 5 mg 07/27/21 09:00 Lisinopril 10 Mg Tab PO DAILY [facility] Loperamide HCl 2 mg 07/26/21 13:32 Loperamide 2 Mg Cap PO Q2HR PRN Loose Stool Naloxone HCl 0.2 mg 07/26/21 13:32 Naloxone 0.4 Mg/Ml 1 Ml Vial IV Q2M PRN Opioid Reversal Ondansetron HCl 4 mg 07/26/21 13:32 Ondansetron 4 Mg/2 Ml Vial IVP Q8HR PRN Nausea And Vomiting Spironolactone 25 mg 07/27/21 09:00 Spironolactone 25 Mg Tab PO DAILY [facility] Intake and Output 07/26/21 07/27/21 07/27/21 22:59 06:59 14:59 Intake Total 240 Output Total 700 Balance -460 Intake: Oral 240 Output: Urine 700 Other: Weight 95.254 kg 07/26/21 11:20 07/26/21 11:20
--- NOTE | 2021-07-27 08:32 | ECHOF ---
Referral Reason:Heart Failure MEASUREMENTS -------- HEIGHT: 182.9 cm WEIGHT: 95.3 kg BP: RVIDd: 3.6 cm (< 3.3) IVSd: 1.5 cm (0.6 - 1.1) LVIDd: 5.1 cm (3.9 - 5.3) LVPWd: 2.0 cm (0.6 - 1.1) IVSs: 1.8 cm LVIDs: 4.0 cm LVPWs: 1.9 cm LAESV Index (A-L): 60.92 ml/m Ao Diam: 3.5 cm (2.0 - 3.7) AV Cusp: 0.7 cm (1.5 - 2.6) MV EXCURSION: 21.475 mm (> 18.000) MV EF SLOPE: 42 mm/s (70 - 150) EPSS: 1.4 cm MV E Alfonzo: 0.51 m/s MV DecT: 160 ms MV A Alfonzo: 0.30 m/s MV E/A Ratio: 1.68 AV maxP.13 mmHg AV meanP.89 mmHg RAP: 5.00 mmHg RVSP: 50.90 mmHg TAPSE: 22.00 mm FINDINGS -------- Sinus rhythm. This was a technically good study. The left ventricular size is normal. There is moderate concentric left ventricular hypertrophy. T here is severe global hypokinesis of LV . Overall left ventricular systolic function is severely im paired with, an EF < 20%. The right ventricle is normal in size. LA is severely dilated >40 ml/m2 The right atrial size is normal. There is mild aortic stenosis present. The maximum velocity across the aortic valve is 2.60m/s. A OV gradient is underestimated due to decrease EF. Mild mitral regurgitation is present. Mild tricuspid regurgitation present. There is moderate pulmonary hypertension. The right ventric ular systolic pressure, as measured by Doppler, is 50.90mmHg. Trace/mild (physiologic) pulmonic regurgitation. There is a trivial pericardial effusion present. CONCLUSIONS -------- 1. The left ventricular size is normal. 2. There is moderate concentric left ventricular hypertrophy. 3. There is severe global hypokinesis of LV . 4. Overall left ventricular systolic function is severely impaired with, an EF < 20%. 5. The right ventricle is normal in size. 6. LA is severely dilated >40 ml/m2 7. The right atrial size is normal. 8. There is mild aortic stenosis present. 9. The maximum velocity across the aortic valve is 2.60m/s. 10. AOV gradient is underestimated due to decrease EF. 11. Mild mitral regurgitation is present. 12. Mild tricuspid regurgitation present. 13. There is moderate pulmonary hypertension. 14. The right ventricular systolic pressure, as measured by Doppler, is 50.90mmHg. 15. Trace/mild (physiologic) pulmonic regurgitation. 16. There is a trivial pericardial effusion present. MANAGER [employer]: Lashaun Francis RDCS
[2021-07-27] MEDS ORDERED: lisinopriL 10 MG TAB PO SCH (09:00)
[2021-07-27 09:03] LABS: Basophils % (A) 1 %; Eosinophils # (A) 0.1 k/uL (0-0.7); Eosinophils % (A) 1 %; HCT 48.3 % (39.0-53.0); Hypochromasia Marked; Lymphocytes # (A) 0.7 k/uL (1.0-4.8); Lymphocytes % (A) 10 %; MCH 29.8 pg (25.0-35.0); MCV 102.5 fL (80.0-100.0); Macrocytosis Slight; Monocytes # (A) 0.5 k/uL (0-1.0); Monocytes % (A) 7 %; Neutrophils # (A) 6.1 k/uL (1.3-7.7); Neutrophils % (A) 81 %; Platelet Count 205 k/uL (150-450); RBC 4.71 m/uL (4.30-5.90); RDW 13.8 % (11.5-15.5); WBC 7.5 k/uL (3.8-10.6)
[2021-07-27 09:22] LABS: Albumin 3.5 g/dL (3.5-5.0); Calcium 9.2 mg/dL (8.4-10.2); Total Bilirubin 1.1 mg/dL (0.2-1.3); Total Protein 6.8 g/dL (6.3-8.2)
[2021-07-27] MEDS: lisinopriL 5 MG TAB PO SCH (09:42)
[2021-07-27] MEDS: APIXABAN 2.5 MG TABLET PO SCH ×2 (09:42→21:05)
[2021-07-27] MEDS: FUROSEMIDE 10 MG/ML 4 ML VIAL IV SCH ×2 (09:42→21:05)
[2021-07-27] MEDS: SPIRONOLACTONE 25 MG TAB PO SCH (09:42)
--- NOTE | 2021-07-27 10:41 | P.PN ---
Subjective Progress Note Date: 07/27/21 85-year-old male with multiple medical problems including hypertension and likely congestive heart failure admitted to the hospital for increased shortness of breath and abnormal computed tomography scan of the lungs and abdomen patient was found to have pleural effusions and ascites patient states he gets short of breath with exertion Review of systems and systems has been reviewed all negative and positive findings as per history of present illness Constitutional: No acute distress, conversant, pleasant Eyes: Anicteric sclerae, moist conjunctiva, no lid-lag PERRLA ENMT: NC/AT Oropharynx clear, no erythema, exudates Neck: Supple, FROM, no masses, or JVD No carotid bruits No thyromegaly Lungs: crackly Cardiovascular: Heart regular in rate and rhythm, No murmurs, gallops, or rubs No peripheral edema Abdominal: Soft Nontender, no guarding, rebound or rigidity Abdomen moving with respiration Normoactive bowel sounds No hepatomegaly, No splenomegaly No palpable mass No abdominal wall hernia noted Skin: Normal temperature, tone, texture, turgor No induration No subcutaneous nodules No rash, lesions No ulcers Extremities: No digital cyanosis No clubbing Pedal pulses intact and symmetrical Radial pulses intact and symmetrical Normal gait and station No calf tenderness Psychiatric:Alert and oriented to person, place and time Appropriate affect Intact judgement Neuro: Muscles Strength 5/5 in all 4 extremities Sensation to light touch grossly present throughout Cranial nerves II-XII grossly intact No focal sensory deficits Likely acute on chronic congestive heart failure start the patient on IV Lasix Pleural effusions Pulmonology following repeat chest x-ray in a day or 2 to follow up improvement in the infusions We'll also consult cardiology Generalized weakness Multiple medical problems Objective - Vital Signs Vital signs: Vital Signs Temp 98 F 07/27/21 08:00 Pulse 67 07/27/21 10:15 Resp 18 07/27/21 10:15 BP 111/69 07/27/21 08:00 Pulse Ox 99 07/27/21 08:00 Intake & Output 07/26/21 07/27/21 07/27/21 18:59 06:59 18:59 Intake Total 240 240 Output Total 700 325 Balance -460 -85 Weight 95.254 kg 95.345 kg Intake: Oral 240 240 Output: Urine 700 325 - Labs CBC & Chem 7: 07/27/21 08:45 07/27/21 08:45 Labs: Abnormal Lab Results - Last 24 Hours (Table) 07/26/21 07/26/21 07/26/21 Range/Units 11:20 11:20 11:20 MCV (80.0-100.0) fL MCHC (31.0-37.0) g/dL Lymphocytes # 0.9 L (1.0-4.8) k/uL PT 12.4 H (9.0-12.0) sec INR 1.2 H (<1.2) Carbon Dioxide (22-30) mmol/L BUN 35 H (9-20) mg/dL Creatinine (0.66-1.25) mg/dL Glucose (74-99) mg/dL Alkaline Phosphatase 143 H (38-126) U/L Troponin I (0.000-0.034) ng/mL 07/26/21 07/26/21 07/26/21 Range/Units 11:20 14:43 16:36 MCV (80.0-100.0) fL MCHC (31.0-37.0) g/dL Lymphocytes # (1.0-4.8) k/uL PT (9.0-12.0) sec INR (<1.2) Carbon Dioxide (22-30) mmol/L BUN (9-20) mg/dL Creatinine (0.66-1.25) mg/dL Glucose (74-99) mg/dL Alkaline Phosphatase (38-126) U/L Troponin I 0.097 H* 0.087 H* 0.092 H* (0.000-0.034) ng/mL 07/27/21 07/27/21 Range/Units 08:45 08:45 MCV 102.5 H (80.0-100.0) fL MCHC 29.0 L (31.0-37.0) g/dL Lymphocytes # 0.7 L (1.0-4.8) k/uL PT (9.0-12.0) sec INR (<1.2) Carbon Dioxide 34 H (22-30) mmol/L BUN 40 H (9-20) mg/dL Creatinine 1.45 H (0.66-1.25) mg/dL Glucose 137 H (74-99) mg/dL Alkaline Phosphatase 129 H (38-126) U/L Troponin I (0.000-0.034) ng/mL
--- NOTE | 2021-07-27 14:19 | P.PN ---
Subjective Progress Note Date: 07/27/21 85-year-old male patient known history of CHF with an ejection fraction of 20- 25% in addition to chronic atrial fibrillation maintained on long-term anticoagulation with Eliquis. The patient presented emergency department because of worsening shortness of breath, exertional dyspnea and orthopnea. He was also having progressive increase in swelling in lower extremity bilaterally. No reported chest pain. No reported cough sputum production. No reported fever chills or night sweats. No angina. No palpitations. The patient has been fully vaccinated for COVID 19. His coronary stenting came back negative. Chest x-ray showed bilateral pleural effusion moderate-sized. Computed tomography scan of the abdomen was done in the emergency department and it showed generalized anasarca in the dependent portion. There bharat calcification of the coronary arteries. There was asymmetric elevation left hemidiaphragm. There was also evidence of bilateral pleural effusion moderate-sized with some atelectasis of the left lung base. There was moderate amount of atherosclerotic calcification of the abdominal aorta and iliac arteries.For now, the patient is being treated for decompensated CHF. The patient started on Lasix. Is producing adequate amount of urine output On today's evaluation of 07/27/2021, the patient is being seen for a follow-up. The patient was seen in consultation yesterday in the emergency department. The patient's bilateral pleural effusion consistent with CHF. The patient is currently on Lasix and the patient is on Lasix 40 mg IV every 12 hours. The fluid balance is negative over the past 24 hours and the patient is feeling better. Nevertheless, there is still significant diminished breath sounds in the lung bases bilaterally. The white cell count at 7.4 with a hemoglobin of 14. BUN is at 40 with a Normal 0.4 and this is consistent with acute kidney injury secondary to cardiorenal factors, CHF and diuresis. Sodium is at 141. There was troponin leak at 0.097 0.087 0.092 respectively 3. Overnight he testing is negative. Echocardiogram was done and the patient has found to have an ejection fraction of less than 20%. The patient has severe global hypokinesis of the LV. Moderate concentric left ventricular hypertrophy. There is moderately severe pulmonary hypertension. No immediate plans for thoracentesis unless the patient is unable to diuresis and the patient developed worsening renal function. We'll give the patient another 24 hours. Objective - Vital Signs Vital signs: Vital Signs Temp 97 F L 07/27/21 12:45 Pulse 86 07/27/21 12:45 Resp 16 07/27/21 12:45 BP 108/49 07/27/21 12:45 Pulse Ox 98 07/27/21 12:45 Intake & Output 07/26/21 07/27/21 07/27/21 18:59 06:59 18:59 Intake Total 240 240 Output Total 700 700 Balance -460 -460 Weight 95.254 kg 95.345 kg Intake: Oral 240 240 Output: Urine 700 700 - Exam Vital signs reviewed and stable. The patient is having some mildly labored breathing and the patient is currently on oxygen at 2 L per minute nasal cannula. More comfortable compared to yesterday. General: non toxic, no distress, appears at stated age Derm: warm, dry Head: atraumatic, normocephalic, symmetric, positive JVDs Eyes: EOMI, no lid lag, anicteric sclera Mouth: no lip lesion, mucus membranes moist Cardiovascular: S1S2 reg, no murmur, positive posterior tibial pulse bilateral, heart sounds are distant. Lungs diminished breath sound bilaterally along with dullness to percussion. No significant wheezing. Abdominal: soft, nontender to palpation, no guarding, no appreciable organomegaly Ext: no gross muscle atrophy, no edema, no contractures Neuro: CN II-XI grossly intact, no focal neuro deficits Psych: Alert, oriented, appropriate affect - Labs CBC & Chem 7: 07/27/21 08:45 07/27/21 08:45 Labs: Abnormal Lab Results - Last 24 Hours (Table) 07/26/21 07/26/21 07/27/21 Range/Units 14:43 16:36 08:45 MCV 102.5 H (80.0-100.0) fL MCHC 29.0 L (31.0-37.0) g/dL Lymphocytes # 0.7 L (1.0-4.8) k/uL Carbon Dioxide (22-30) mmol/L BUN (9-20) mg/dL Creatinine (0.66-1.25) mg/dL Glucose (74-99) mg/dL Alkaline Phosphatase (38-126) U/L Troponin I 0.087 H* 0.092 H* (0.000-0.034) ng/mL 07/27/21 Range/Units 08:45 MCV (80.0-100.0) fL MCHC (31.0-37.0) g/dL Lymphocytes # (1.0-4.8) k/uL Carbon Dioxide 34 H (22-30) mmol/L BUN 40 H (9-20) mg/dL Creatinine 1.45 H (0.66-1.25) mg/dL Glucose 137 H (74-99) mg/dL Alkaline Phosphatase 129 H (38-126) U/L Troponin I (0.000-0.034) ng/mL Assessment and Plan Plan: 1 acute hypoxic respiratory failure, likely secondary to decompensated CHF currently on 2 L of oxygen by nasal cannula 2 acute systolic heart failure, ejection fraction is less than 20% 3 bilateral pleural effusion moderate-sized with a compressive atelectasis of the left lung base, likely secondary to CHF 4 diffuse anasarca with increased lower extremity edema secondary to above 5 chronic atrial fibrillation 6 questionable valvular heart disease with mild aortic stenosis 7 impaired hearing 8 hypertension 9 acute kidney injury, secondary to cardiorenal factors and diuresis. Plan Weaned down the FiO2 as tolerated to maintain saturation above 90%. Currently on 2 L. patient is calm and comfortable at this point less short of breath compared to yesterday Continue IV Lasix Monitor renal function Repeat chest x-ray with the next 24-48 hours. We'll do a thoracentesis of there is no improvement in the symptoms or the size of the pleural effusions. Cardiology consultations Repeat echocardiogram was noted and the patient has an ejection fraction of 20% with secondary pulmonary hypertension Monitor electrolytes We'll follow
[2021-07-27] MEDS: AZITHROMYCIN 500 MG in SODIUM CHLORIDE 0.9% 250 ML IVPB SCH (16:28)
[2021-07-28] MEDS: carvediloL 6.25 MG TAB PO SCH ×2 (06:22→17:49)
--- NOTE | 2021-07-28 07:22 | XR ---
EXAMINATION TYPE: XR chest 1V portable DATE OF EXAM: 07/28/2021 HISTORY: Shortness of breath. COMPARISON: 222 TECHNIQUE: Single view of the chest is submitted. FINDINGS: Demonstrated are scattered senescent parenchymal change. Continued pulmonary venous congestion with left lower lobe infiltrate, atelectasis and/or effusion. A dditional patchy infiltrate right lower lobe. The heart is stable. Hilar and mediastinal structures are within normal limits. Degenerative changes are seen of the dorsal spine. IMPRESSION: 1. Continued pulmonary venous congestion with left lower lobe infiltrate, atelectasis and/or effusio n. Additional patchy infiltrate right lower lobe.
[2021-07-28 08:15] LABS: Basophils % (A) 0 %; Eosinophils # (A) 0.1 k/uL (0-0.7); Eosinophils % (A) 1 %; HCT 42.7 % (39.0-53.0); HGB 13.2 gm/dL (13.0-17.5); Hypochromasia Moderate; Lymphocytes # (A) 0.8 k/uL (1.0-4.8); Lymphocytes % (A) 11 %; MCH 30.9 pg (25.0-35.0); MCV 99.4 fL (80.0-100.0); Mean Platelet Volume 8.1; Monocytes # (A) 0.4 k/uL (0-1.0); Monocytes % (A) 6 %; Neutrophils # (A) 5.7 k/uL (1.3-7.7); Neutrophils % (A) 80 %; Platelet Count 179 k/uL (150-450); RBC 4.29 m/uL (4.30-5.90); RDW 13.8 % (11.5-15.5); WBC 7.2 k/uL (3.8-10.6)
[2021-07-28 08:34] LABS: Albumin 3.3 g/dL (3.5-5.0); Calcium 9.3 mg/dL (8.4-10.2); Potassium 4.6 mmol/L (3.5-5.1); Total Bilirubin 1.1 mg/dL (0.2-1.3); Total Protein 6.5 g/dL (6.3-8.2)
--- NOTE | 2021-07-28 08:41 | P.PN ---
Subjective Progress Note Date: 07/28/21 85-year-old male with multiple medical problems including hypertension and likely congestive heart failure admitted to the hospital for increased shortness of breath and abnormal computed tomography scan of the lungs and abdomen patient was found to have pleural effusions and ascites patient states he gets short of breath with exertion Review of systems and systems has been reviewed all negative and positive findings as per history of present illness Constitutional: No acute distress, conversant, pleasant Eyes: Anicteric sclerae, moist conjunctiva, no lid-lag PERRLA ENMT: NC/AT Oropharynx clear, no erythema, exudates Neck: Supple, FROM, no masses, or JVD No carotid bruits No thyromegaly Lungs: crackly Cardiovascular: Heart regular in rate and rhythm, No murmurs, gallops, or rubs No peripheral edema Abdominal: Soft Nontender, no guarding, rebound or rigidity Abdomen moving with respiration Normoactive bowel sounds No hepatomegaly, No splenomegaly No palpable mass No abdominal wall hernia noted Skin: Normal temperature, tone, texture, turgor No induration No subcutaneous nodules No rash, lesions No ulcers Extremities: No digital cyanosis No clubbing Pedal pulses intact and symmetrical Radial pulses intact and symmetrical Normal gait and station No calf tenderness Psychiatric:Alert and oriented to person, place and time Appropriate affect Intact judgement Neuro: Muscles Strength 5/5 in all 4 extremities Sensation to light touch grossly present throughout Cranial nerves II-XII grossly intact No focal sensory deficits Likely acute on chronic congestive heart failure start the patient on IV Lasix Pleural effusions We'll also consult cardiology Generalized weakness Multiple medical problems Repeated chest x-ray showed still the patient does have infiltrates and effusions continue to monitor over the weekend and pulmonology is following Objective - Vital Signs Vital signs: Vital Signs Temp 98.3 F 07/27/21 20:00 Pulse 60 07/28/21 04:00 Resp 18 07/28/21 04:00 BP 106/58 07/28/21 04:00 Pulse Ox 94 L 07/28/21 04:00 Intake & Output 07/27/21 07/28/21 07/28/21 18:59 06:59 18:59 Intake Total 240 485 Output Total 1275 1450 Balance -1035 -965 Weight 95.345 kg Intake: Oral 240 485 Output: Urine 1275 1450 Other: Voiding Method Urinal - Labs CBC & Chem 7: 07/28/21 08:02 07/28/21 08:02 Labs: Abnormal Lab Results - Last 24 Hours (Table) 07/27/21 07/27/21 07/28/21 Range/Units 08:45 08:45 08:02 RBC (4.30-5.90) m/uL MCV 102.5 H (80.0-100.0) fL MCHC 29.0 L (31.0-37.0) g/dL Lymphocytes # 0.7 L (1.0-4.8) k/uL Carbon Dioxide 34 H 31 H (22-30) mmol/L BUN 40 H 47 H (9-20) mg/dL Creatinine 1.45 H 1.63 H (0.66-1.25) mg/dL Glucose 137 H 131 H (74-99) mg/dL Alkaline Phosphatase 129 H 127 H (38-126) U/L Albumin 3.3 L (3.5-5.0) g/dL 07/28/21 Range/Units 08:02 RBC 4.29 L (4.30-5.90) m/uL MCV (80.0-100.0) fL MCHC (31.0-37.0) g/dL Lymphocytes # 0.8 L (1.0-4.8) k/uL Carbon Dioxide (22-30) mmol/L BUN (9-20) mg/dL Creatinine (0.66-1.25) mg/dL Glucose (74-99) mg/dL Alkaline Phosphatase (38-126) U/L Albumin (3.5-5.0) g/dL Microbiology - Last 24 Hours (Table) 07/26/21 14:10 Blood Culture - Preliminary Blood No Growth after 24 hours
[2021-07-28] MEDS: FUROSEMIDE 10 MG/ML 4 ML VIAL IV SCH (09:42)
[2021-07-28] MEDS: APIXABAN 2.5 MG TABLET PO SCH ×2 (09:43→20:28)
[2021-07-28] MEDS: SPIRONOLACTONE 25 MG TAB PO SCH (09:43)
--- NOTE | 2021-07-28 12:05 | US ---
EXAMINATION TYPE: US chest DATE OF EXAM: 07/28/2021 COMPARISON: NONE CLINICAL HISTORY: shortness of breath. TECHNIQUE: Targeted ultrasound of the posterior lower EXAM MEASUREMENTS: Right Pleural Effusion pocket size: 7.8 cm Right skin surface to fluid distance: 2.8 cm Very lateral fluid pocket. Left Pleural Effusion pocket size: 2.6 cm Left skin surface to fluid distance: 2.7 cm Right side marked for possible thoracentesis outside the dept. Left side not marked for possible thoracentesis outside the dept. Pulmonologists are able to review the images in the patient?s EMR. IMPRESSIONS: As above
--- NOTE | 2021-07-28 12:40 | P.PN ---
Subjective Progress Note Date: 07/28/21 HISTORY OF PRESENT ILLNESS: The patient is an 85-year-old male who presents with abdominal discomfort and progressive dyspnea. He has a known history of severe nonischemic cardiomy opathy, chronic persistent atrial fibrillation and aortic valve disease. He has been followed on a regular basis by Dr. Evans. He denies any PND but he has peripheral edema and has been complaining of abdominal discomfort with some nausea but no vomiting. He denies any GI bleeding. He underwent a cardiac catheterization in 2018 and was found to have mild obstructive disease in his most recent echocardiogram in December 2020 showed an ejection fraction of 38% with a mean gradient of 20 mmHg across the aortic valve. He also had moderate mitral and tricuspid regurgitation with no significant pulmonary hypertension. Patient has chronic dyspnea on exertion worse recently. He denies any dizziness or palpitations, he denies any syncope. His peripheral edema is worse. His compliance with low salt intake is unclear. He has a history of hypertension, he is nondiabetic. He is a nonsmoker. His troponin was 0.097, 0.087, 0.092, NT proBNP 14,300 and his chest x-ray shows evidence of left sided effusion. His potassium is 4.9 His medication and home include Coreg 6.25 mg twice a day, Prinivil 10 mg daily, aspirin once a day and Eliquis milligrams twice a day. 07/28/2021 Patient examined this morning at the bedside. Patient denies chest pain or pressure. Patient states his shortness of breath is improving. He remains on IV Lasix. Blood pressure this morning is on the lower side with a systolic around 90. He denies dizziness or lightheadedness. He reports he is tired this morning and has not been able to sleep in the hospital. Echocardiogram completed revealing ejection fraction less than 20%, severe global hypokinesis of LV, mild aortic stenosis, mild mitral regurgitation, mild tricuspid regurgitation, and moderate pulmonary hypertension PHYSICAL EXAM: VITAL SIGNS: Reviewed. GENERAL: Well-developed in no acute distress. NECK: Supple. No JVD or thyromegaly LUNGS: Respirations even and unlabored. Lungs diminished with mild expiratory wh eezing. HEART: Irregular rate and rhythm. S1 and S2 heard. Systolic murmur noted. EXTREMITIES: Normal range of motion. No clubbing or cyanosis. Peripheral pulses intact. Trace bilateral lower extremity edema ASSESSMENT: Acute exacerbation of chronic congestive heart failure with reduced ejection fraction, EF 20% Permanent atrial fibrillation History of nonischemic cardiomyopathy Aortic stenosis Abdominal pain Pleural effusions Borderline hypotension Acute kidney injury PLAN: Continue current cardiac medications Decrease lisinopril to 2.5 mg daily secondary to soft blood pressures Discontinue IV Lasix. Begin oral Lasix 40 mg twice a day Monitor kidney function. Repeat in a.m. Further recommendations pending patient course Nurse practitioner note has been reviewed by physician. Signing provider agrees with the documented findings, assessment, and plan of care. Objective - Vital Signs Vital signs: Vital Signs Temp 97.8 F 07/28/21 09:40 Pulse 87 07/28/21 09:40 Resp 20 07/28/21 09:40 BP 94/58 07/28/21 09:40 Pulse Ox 99 07/28/21 09:40 Intake & Output 07/27/21 07/28/21 07/28/21 18:59 06:59 18:59 Intake Total 240 485 240 Output Total 1275 1450 275 Balance -1035 -965 -35 Weight 95.345 kg Intake: Oral 240 485 240 Output: Urine 1275 1450 275 Other: Voiding Method Urinal Urinal - Labs CBC & Chem 7: 07/28/21 08:02 07/28/21 08:02 Labs: Abnormal Lab Results - Last 24 Hours (Table) 07/28/21 07/28/21 Range/Units 08:02 08:02 RBC 4.29 L (4.30-5.90) m/uL Lymphocytes # 0.8 L (1.0-4.8) k/uL Carbon Dioxide 31 H (22-30) mmol/L BUN 47 H (9-20) mg/dL Creatinine 1.63 H (0.66-1.25) mg/dL Glucose 131 H (74-99) mg/dL Alkaline Phosphatase 127 H (38-126) U/L Albumin 3.3 L (3.5-5.0) g/dL Microbiology - Last 24 Hours (Table) 07/26/21 14:10 Blood Culture - Preliminary Blood No Growth after 24 hours
--- NOTE | 2021-07-28 13:58 | P.PN ---
Subjective Progress Note Date: 07/28/21 85-year-old male patient known history of CHF with an ejection fraction of 20- 25% in addition to chronic atrial fibrillation maintained on long-term anticoagulation with Eliquis. The patient presented emergency department because of worsening shortness of breath, exertional dyspnea and orthopnea. He was also having progressive increase in swelling in lower extremity bilaterally. No reported chest pain. No reported cough sputum production. No reported fever chills or night sweats. No angina. No palpitations. The patient has been fully vaccinated for COVID 19. His coronary stenting came back negative. Chest x-ray showed bilateral pleural effusion moderate-sized. Computed tomography scan of the abdomen was done in the emergency department and it showed generalized anasarca in the dependent portion. There bharat calcification of the coronary arteries. There was asymmetric elevation left hemidiaphragm. There was also evidence of bilateral pleural effusion moderate-sized with some atelectasis of the left lung base. There was moderate amount of atherosclerotic calcification of the abdominal aorta and iliac arteries.For now, the patient is being treated for decompensated CHF. The patient started on Lasix. Is producing adequate amount of urine output On today's evaluation of 07/27/2021, the patient is being seen for a follow-up. The patient was seen in consultation yesterday in the emergency department. The patient's bilateral pleural effusion consistent with CHF. The patient is currently on Lasix and the patient is on Lasix 40 mg IV every 12 hours. The fluid balance is negative over the past 24 hours and the patient is feeling better. Nevertheless, there is still significant diminished breath sounds in the lung bases bilaterally. The white cell count at 7.4 with a hemoglobin of 14. BUN is at 40 with a Normal 0.4 and this is consistent with acute kidney injury secondary to cardiorenal factors, CHF and diuresis. Sodium is at 141. There was troponin leak at 0.097 0.087 0.092 respectively 3. Overnight he testing is negative. Echocardiogram was done and the patient has found to have an ejection fraction of less than 20%. The patient has severe global hypokinesis of the LV. Moderate concentric left ventricular hypertrophy. There is moderately severe pulmonary hypertension. No immediate plans for thoracentesis unless the patient is unable to diuresis and the patient developed worsening renal function. We'll give the patient another 24 hours. Skin 07/28/2021, the patient is doing well. The patient is currently on room air oxygen. Patient was diuresed with IV Lasix and the patient is currently on oral Lasix 40 mg by mouth twice a day. The patient has diabetes adequately and the patient has been negative fluid balance. Repeat chest x-ray was done today that showed some residual effusion the left lung base. Right lung has improved. Ultrasound of the chest was done and showed a 1 cm pocket on the left. The patient has developed some mild prerenal azotemia with a creatinine of 1.63 with a BUN of 47. The white cell count is at 7.2 with hemoglobin 13.2. No other new complaints otherwise for now. The patient remains on anticoagulation with Eliquis 2.5 mg by mouth twice a day. The patient has impaired LV function with an ejection fraction of less than 20%. There is global hypokinesis. There is moderate degree of pulmonary hypertension. No need for thoracentesis at this point in time specially the patient's respiratory status is improved. The fluid balance is -2 L for today. Weight is down to 95. Objective - Vital Signs Vital signs: Vital Signs Temp 97.8 F 07/28/21 09:40 Pulse 87 07/28/21 09:40 Resp 20 07/28/21 09:40 BP 94/58 07/28/21 09:40 Pulse Ox 99 07/28/21 09:40 Intake & Output 07/27/21 07/28/21 07/28/21 18:59 06:59 18:59 Intake Total 240 485 480 Output Total 1275 1450 1100 Balance -1035 -965 -620 Weight 95.345 kg Intake: Oral 240 485 480 Output: Urine 1275 1450 1100 Other: Voiding Method Urinal Urinal - Exam Vital signs reviewed and stable. The patient is having some mildly labored breathing and the patient is currently on room air O2 General: non toxic, no distress, appears at stated age Derm: warm, dry Head: atraumatic, normocephalic, symmetric, positive JVDs Eyes: EOMI, no lid lag, anicteric sclera Mouth: no lip lesion, mucus membranes moist Cardiovascular: S1S2 reg, no murmur, positive posterior tibial pulse bilateral, heart sounds are distant. Lungs diminished breath sound bilaterally along with dullness to percussion. No significant wheezing. Abdominal: soft, nontender to palpation, no guarding, no appreciable organomegaly Ext: no gross muscle atrophy, no edema, no contractures Neuro: CN II-XI grossly intact, no focal neuro deficits Psych: Alert, oriented, appropriate affect - Labs CBC & Chem 7: 07/28/21 08:02 07/28/21 08:02 Labs: Abnormal Lab Results - Last 24 Hours (Table) 07/28/21 07/28/21 Range/Units 08:02 08:02 RBC 4.29 L (4.30-5.90) m/uL Lymphocytes # 0.8 L (1.0-4.8) k/uL Carbon Dioxide 31 H (22-30) mmol/L BUN 47 H (9-20) mg/dL Creatinine 1.63 H (0.66-1.25) mg/dL Glucose 131 H (74-99) mg/dL Alkaline Phosphatase 127 H (38-126) U/L Albumin 3.3 L (3.5-5.0) g/dL Microbiology - Last 24 Hours (Table) 07/26/21 14:10 Blood Culture - Preliminary Blood No Growth after 24 hours Assessment and Plan Plan: 1 acute hypoxic respiratory failure, likely secondary to decompensated CHF curre ntly on room air O2 and the patient is improved in terms of his breathing and less short of breath and oxidation is also improved. 2 acute systolic heart failure, ejection fraction is less than 20% 3 bilateral pleural effusion moderate-sized with a compressive atelectasis of the left lung base, likely secondary to CHF, the patient is a small stable left- sided pleural effusion with a 2.5 cm pocket on ultrasound of the chest. No need for thoracentesis. 4 diffuse anasarca with increased lower extremity edema secondary to above 5 chronic atrial fibrillation, rate is controlled and the patient isn't evaluated. 6 questionable valvular heart disease with mild aortic stenosis 7 impaired hearing 8 hypertension 9 acute kidney injury, secondary to cardiorenal factors and diuresis. The creat inine is up to 1.67. Plan Weaned down the FiO2 as tolerated to maintain saturation above 90%. Currently the patient on room air oxygen Monitor renal function Creatinine is up to 1.67 and the patient is oral Lasix No need for thoracentesis Repeat echocardiogram was noted and the patient has an ejection fraction of 20% with secondary pulmonary hypertension Monitor electrolytes We'll follow
[2021-07-28] MEDS: FUROSEMIDE 40 MG TAB PO SCH (17:49)
[2021-07-28] MEDS: lisinopriL 5 MG TAB PO SCH (19:27)
[2021-07-29] MEDS: carvediloL 6.25 MG TAB PO SCH ×2 (06:42→18:35)
[2021-07-29 08:30] LABS: Basophils % (A) 1 %; Eosinophils # (A) 0.1 k/uL (0-0.7); Eosinophils % (A) 1 %; HCT 44.4 % (39.0-53.0); HGB 13.5 gm/dL (13.0-17.5); Hypochromasia Marked; Lymphocytes # (A) 0.7 k/uL (1.0-4.8); Lymphocytes % (A) 11 %; MCH 30.6 pg (25.0-35.0); MCHC 30.4 g/dL (31.0-37.0); MCV 100.5 fL (80.0-100.0); Macrocytosis Slight; Mean Platelet Volume 8.5; Monocytes # (A) 0.4 k/uL (0-1.0); Monocytes % (A) 6 %; Neutrophils # (A) 5.2 k/uL (1.3-7.7); Neutrophils % (A) 80 %; Platelet Count 163 k/uL (150-450); RBC 4.41 m/uL (4.30-5.90); RDW 13.7 % (11.5-15.5); WBC 6.5 k/uL (3.8-10.6)
[2021-07-29 08:53] LABS: Albumin 3.2 g/dL (3.5-5.0); Calcium 9.2 mg/dL (8.4-10.2); Potassium 4.6 mmol/L (3.5-5.1); Total Bilirubin 0.9 mg/dL (0.2-1.3); Total Protein 6.2 g/dL (6.3-8.2)
[2021-07-29] MEDS: APIXABAN 2.5 MG TABLET PO SCH ×2 (08:58→20:03)
[2021-07-29] MEDS: FUROSEMIDE 40 MG TAB PO SCH ×2 (08:58→15:38)
[2021-07-29] MEDS: SPIRONOLACTONE 25 MG TAB PO SCH (08:58)
--- NOTE | 2021-07-29 11:43 | P.PN ---
Subjective Progress Note Date: 07/29/21 PROGRESS NOTE The patient is an 85-year-old male with known history of severe nonischemic cardiomyopathy, atrial fibrillation, aortic stenosis who presented with progressive dyspnea. He's feeling better today, continues to have peripheral edema but he is laying supine. He denies any chest discomfort, dizziness or palpitations. He has no nausea. He continues to be on carvedilol 6.25 mg twice a day, Lasix 40 mg twice a day, lisinopril 20 half milligrams daily, spironolactone 25 mg daily in addition to Eliquis 2.5 mg twice a day PHYSICAL EXAMINATION: Blood pressure [111/59] heart rate [68] LUNGS: [Decreased breath sounds at the bases HEART: Irregular rate and rhythm, S1, S2. No S3. Ejection systolic murmur, /] ABDOMEN: [Soft, nontender, no organomegaly] EXTREMETIES: [+1 edema] LAB: BUN and creatinine 52 and 1.41, potassium 4.6, hemoglobin 13.5 IMPRESSION: 1. [ CHF with known systolic dysfunction, acute over chronic with pleural effusion] 2. [ Nonischemic cardiomyopathy with mild CAD 3. [ History of chronic persistent atrial fibrillation, anticoagulated] 4. [ Chronic kidney disease] 5. Aortic stenosis PLAN: 1. Continue present therapy 2. Follow renal function closely 3. If blood pressure is stable increase FANG inhibitor. 4. If stable probable discharge in 24-48 hours. Objective - Vital Signs Vital signs: Vital Signs Temp 96.8 F L 07/29/21 08:51 Pulse 68 07/29/21 08:51 Resp 18 07/29/21 08:51 BP 85/53 07/29/21 08:51 Pulse Ox 90 L 07/29/21 08:51 Intake & Output 07/28/21 07/29/21 07/29/21 18:59 06:59 18:59 Intake Total 598 970 240 Output Total 1475 1200 300 Balance -877 -230 -60 Intake: Oral 598 970 240 Output: Urine 1475 1200 300 Other: Voiding Method Urinal Urinal # Voids 1 - Labs CBC & Chem 7: 07/29/21 08:00 07/29/21 08:00 Labs: Abnormal Lab Results - Last 24 Hours (Table) 07/29/21 07/29/21 Range/Units 08:00 08:00 MCV 100.5 H (80.0-100.0) fL MCHC 30.4 L (31.0-37.0) g/dL Lymphocytes # 0.7 L (1.0-4.8) k/uL BUN 52 H (9-20) mg/dL Creatinine 1.41 H (0.66-1.25) mg/dL Glucose 169 H (74-99) mg/dL Total Protein 6.2 L (6.3-8.2) g/dL Albumin 3.2 L (3.5-5.0) g/dL Microbiology - Last 24 Hours (Table) 07/26/21 14:10 Blood Culture - Preliminary Blood No Growth after 48 hours
--- NOTE | 2021-07-29 12:34 | P.PN ---
Subjective Progress Note Date: 07/29/21 No new complaints today. Ongoing diuresis for another 24 hours per cardioloyg. Objective - Vital Signs Vital signs: Vital Signs Temp 96.8 F L 07/29/21 08:51 Pulse 68 07/29/21 08:51 Resp 18 07/29/21 08:51 BP 85/53 07/29/21 08:51 Pulse Ox 90 L 07/29/21 08:51 Intake & Output 07/28/21 07/29/21 07/29/21 18:59 06:59 18:59 Intake Total 598 970 240 Output Total 1475 1200 300 Balance -877 -230 -60 Intake: Oral 598 970 240 Output: Urine 1475 1200 300 Other: Voiding Method Urinal Urinal Urinal Diaper # Voids 1 - Exam Gen: awake, alert HEENT: normocephalic, atraumatic, good hearing acuity, moist mucous membranes Resp: good air exchange, breathing comfortably with no accessory muscle use CVS: good distal perfusion x 4, GI: soft, NTTP, ND : no SPT, no CVAT, figueroa catheter not present MSK: Bilateral pitting edema, no clubbing Neuro: non-focal, moving all extremities Psych: cooperative, euthymic mood - Labs CBC & Chem 7: 07/29/21 08:00 07/29/21 08:00 Labs: Abnormal Lab Results - Last 24 Hours (Table) 07/29/21 07/29/21 Range/Units 08:00 08:00 MCV 100.5 H (80.0-100.0) fL MCHC 30.4 L (31.0-37.0) g/dL Lymphocytes # 0.7 L (1.0-4.8) k/uL BUN 52 H (9-20) mg/dL Creatinine 1.41 H (0.66-1.25) mg/dL Glucose 169 H (74-99) mg/dL Total Protein 6.2 L (6.3-8.2) g/dL Albumin 3.2 L (3.5-5.0) g/dL Microbiology - Last 24 Hours (Table) 07/26/21 14:10 Blood Culture - Preliminary Blood No Growth after 48 hours Assessment and Plan Assessment: Acute on Chronic Systolic Congestive Heart Failure Exacerbation, EF 20% Permanent Atrial Fibrillation Bilateral Pleural Effusions JEANNE -admit to inpatient, telemetry -strict I/Os, daily weights -lasix -cardiology consult -pulmonology consult -eliquis HTN HLD -Home meds reviewed and reconciled, lisinopril decreased to 2.5mg daily.
--- NOTE | 2021-07-29 13:21 | P.PN ---
Subjective Progress Note Date: 07/29/21 85-year-old male patient known history of CHF with an ejection fraction of 20- 25% in addition to chronic atrial fibrillation maintained on long-term anticoagulation with Eliquis. The patient presented emergency department because of worsening shortness of breath, exertional dyspnea and orthopnea. He was also having progressive increase in swelling in lower extremity bilaterally. No reported chest pain. No reported cough sputum production. No reported fever chills or night sweats. No angina. No palpitations. The patient has been fully vaccinated for COVID 19. His coronary stenting came back negative. Chest x-ray showed bilateral pleural effusion moderate-sized. Computed tomography scan of the abdomen was done in the emergency department and it showed generalized anasarca in the dependent portion. There bharat calcification of the coronary arteries. There was asymmetric elevation left hemidiaphragm. There was also evidence of bilateral pleural effusion moderate-sized with some atelectasis of the left lung base. There was moderate amount of atherosclerotic calcification of the abdominal aorta and iliac arteries.For now, the patient is being treated for decompensated CHF. The patient started on Lasix. Is producing adequate amount of urine output On today's evaluation of 07/27/2021, the patient is being seen for a follow-up. The patient was seen in consultation yesterday in the emergency department. The patient's bilateral pleural effusion consistent with CHF. The patient is currently on Lasix and the patient is on Lasix 40 mg IV every 12 hours. The fluid balance is negative over the past 24 hours and the patient is feeling better. Nevertheless, there is still significant diminished breath sounds in the lung bases bilaterally. The white cell count at 7.4 with a hemoglobin of 14. BUN is at 40 with a Normal 0.4 and this is consistent with acute kidney injury secondary to cardiorenal factors, CHF and diuresis. Sodium is at 141. There was troponin leak at 0.097 0.087 0.092 respectively 3. Overnight he testing is negative. Echocardiogram was done and the patient has found to have an ejection fraction of less than 20%. The patient has severe global hypokinesis of the LV. Moderate concentric left ventricular hypertrophy. There is moderately severe pulmonary hypertension. No immediate plans for thoracentesis unless the patient is unable to diuresis and the patient developed worsening renal function. We'll give the patient another 24 hours. Skin 07/28/2021, the patient is doing well. The patient is currently on room air oxygen. Patient was diuresed with IV Lasix and the patient is currently on oral Lasix 40 mg by mouth twice a day. The patient has diabetes adequately and the patient has been negative fluid balance. Repeat chest x-ray was done today that showed some residual effusion the left lung base. Right lung has improved. Ultrasound of the chest was done and showed a 1 cm pocket on the left. The patient has developed some mild prerenal azotemia with a creatinine of 1.63 with a BUN of 47. The white cell count is at 7.2 with hemoglobin 13.2. No other new complaints otherwise for now. The patient remains on anticoagulation with Eliquis 2.5 mg by mouth twice a day. The patient has impaired LV function with an ejection fraction of less than 20%. There is global hypokinesis. There is moderate degree of pulmonary hypertension. No need for thoracentesis at this point in time specially the patient's respiratory status is improved. The fluid balance is -2 L for today. Weight is down to 95. 07/29/2021, patient is being seen for a follow-up. Clinically the patient is stable. The patient was switched to oral Lasix 40 mg by mouth twice a day. The patient is doing well. We decided not to do any thoracentesis on this patient has the pleural fluid was small and was also improving. The patient advanced cardiomyopathy. He is currently on Coreg. Is on Zestril. Is on Eliquis. He was also started on Aldactone. In terms of his renal function, creatinine is at 1.4 and a BUN is 52. Sodium is at 137. Fluid balance is -2 L L over the past 24 hours. Objective - Vital Signs Vital signs: Vital Signs Temp 98.5 F 07/29/21 12:00 Pulse 68 07/29/21 08:51 Resp 16 07/29/21 12:00 BP 123/61 07/29/21 12:00 Pulse Ox 93 L 07/29/21 12:00 Intake & Output 07/28/21 07/29/21 07/29/21 18:59 06:59 18:59 Intake Total 598 970 240 Output Total 1475 1200 600 Balance -120 -128 -710 Intake: Oral 598 970 240 Output: Urine 1475 1200 600 Other: Voiding Method Urinal Urinal Urinal Diaper # Voids 1 - Exam Vital signs reviewed and stable. The patient is having some mildly labored breathing and the patient is currently on room air O2 General: non toxic, no distress, appears at stated age Derm: warm, dry Head: atraumatic, normocephalic, symmetric, positive JVDs Eyes: EOMI, no lid lag, anicteric sclera Mouth: no lip lesion, mucus membranes moist Cardiovascular: S1S2 reg, no murmur, positive posterior tibial pulse bilateral, heart sounds are distant. Lungs diminished breath sound bilaterally along with dullness to percussion. No significant wheezing. Abdominal: soft, nontender to palpation, no guarding, no appreciable organomegaly Ext: no gross muscle atrophy, no edema, no contractures Neuro: CN II-XI grossly intact, no focal neuro deficits Psych: Alert, oriented, appropriate affect - Labs CBC & Chem 7: 07/29/21 08:00 07/29/21 08:00 Labs: Abnormal Lab Results - Last 24 Hours (Table) 07/29/21 07/29/21 Range/Units 08:00 08:00 MCV 100.5 H (80.0-100.0) fL MCHC 30.4 L (31.0-37.0) g/dL Lymphocytes # 0.7 L (1.0-4.8) k/uL BUN 52 H (9-20) mg/dL Creatinine 1.41 H (0.66-1.25) mg/dL Glucose 169 H (74-99) mg/dL Total Protein 6.2 L (6.3-8.2) g/dL Albumin 3.2 L (3.5-5.0) g/dL Microbiology - Last 24 Hours (Table) 07/26/21 14:10 Blood Culture - Preliminary Blood No Growth after 48 hours Assessment and Plan Plan: 1 acute hypoxic respiratory failure, likely secondary to decompensated CHF currently on room air O2 and the patient is improved in terms of his breathing and less short of breath and oxidation is also improved. 2 acute systolic heart failure, ejection fraction is less than 20% 3 bilateral pleural effusion moderate-sized with a compressive atelectasis of the left lung base, likely secondary to CHF, the patient is a small stable left- sided pleural effusion with a 2.5 cm pocket on ultrasound of the chest. No need for thoracentesis. 4 diffuse anasarca with increased lower extremity edema secondary to above 5 chronic atrial fibrillation, rate is controlled and the patient isn't evaluated. 6 questionable valvular heart disease with mild aortic stenosis 7 impaired hearing 8 hypertension 9 acute kidney injury, secondary to cardiorenal factors and diuresis. The creatinine is up to 1.67. Plan Clinically improving Lasix and switch to oral Renal function is stable at 1.4 creatinine Started Aldactone Continue with Coreg No need for thoracentesis Repeat echocardiogram was noted and the patient has an ejection fraction of 20% with secondary pulmonary hypertension Monitor electrolytes We'll follow
[2021-07-29 21:43] VITALS: TEMP 98.1
[2021-07-29] MEDS ORDERED: MAGNESIUM SULFATE-D5W PMX 1 GM in DEXTROSE/WATER 1 100ML.BAG IVPB ONE (23:39)
[2021-07-30 07:37] LABS: Calcium 9.4 mg/dL (8.4-10.2); Potassium 4.5 mmol/L (3.5-5.1)
[2021-07-30 08:14] VITALS: BP 105/55; PULSE 76; RESP 20
[2021-07-30] MEDS: SPIRONOLACTONE 25 MG TAB PO SCH (08:15)
[2021-07-30] MEDS: APIXABAN 2.5 MG TABLET PO SCH (08:15)
[2021-07-30] MEDS: carvediloL 6.25 MG TAB PO SCH (08:15)
[2021-07-30] MEDS: FUROSEMIDE 40 MG TAB PO SCH (08:15)
--- NOTE | 2021-07-30 12:27 | P.PN ---
Subjective Progress Note Date: 07/30/21 PROGRESS NOTE The patient is an 85-year-old male with known history of severe nonischemic cardiomyopathy, atrial fibrillation, aortic stenosis who presented with progressive dyspnea. He's feeling better today, continues to have peripheral edema but he is laying supine. He denies any chest discomfort, dizziness or palpitations. He has no nausea. He continues to be on carvedilol 6.25 mg twice a day, Lasix 40 mg twice a day, lisinopril 20 half milligrams daily, spironolactone 25 mg daily in addition to Eliquis 2.5 mg twice a day July 30: He is feeling better today, his breathing is better. He denies any chest discomfort, dizziness or palpitations. His appetite is good. He continues to be on oral diuretics. His lab today showed a BUN and creatinine of 54 and 1.53, his potassium is 4.5. PHYSICAL EXAMINATION: Blood pressure 105/55 heart rate 76 LUNGS: [Decreased breath sounds at the bases HEART: Irregular rate and rhythm, S1, S2. No S3. Ejection systolic murmur, 07/30] ABDOMEN: [Soft, nontender, no organomegaly] EXTREMETIES: [Trace to +1 edema] IMPRESSION: 1. [ CHF with known systolic dysfunction, acute over chronic with pleural effusion, improving] 2. [ Nonischemic cardiomyopathy with mild CAD 3. [ History of chronic persistent atrial fibrillation, anticoagulated] 4. [ Chronic kidney disease, stable] 5. Aortic stenosis PLAN: 1. Continue present therapy 2. Follow renal function closely 3. His blood pressure is on the low side, we'll continue on the present dose of FANG inhibitor. 4. Increase activity as tolerated. Depending on his progress further recommendations will be made. 5. Prognosis remains guarded. Objective - Vital Signs Vital signs: Vital Signs Temp 98.1 F 07/29/21 20:00 Pulse 76 07/30/21 08:12 Resp 20 07/30/21 08:12 BP 105/55 07/30/21 08:12 Pulse Ox 95 07/30/21 08:12 Intake & Output 07/29/21 07/30/21 07/30/21 18:59 06:59 18:59 Intake Total 240 585 Output Total 1300 1000 800 Balance -1060 -415 -800 Intake: Intake, IV Titration 100 Amount Magnesium Sulfate-D5w Pmx 100 1 gm In Dextrose/Water 1 100ml.bag @ 100 mls/hr IVPB ONCE ONE Rx#: [id number] Oral 240 485 Output: Urine 1300 1000 800 Other: Voiding Method Urinal Urinal Urinal Diaper Diaper Diaper Incontinent Incontinent # Voids 1 1 - Labs CBC & Chem 7: 07/29/21 08:00 07/30/21 06:42 Labs: Abnormal Lab Results - Last 24 Hours (Table) 07/30/21 Range/Units 06:42 Chloride 95 L (98-107) mmol/L Carbon Dioxide 39 H (22-30) mmol/L BUN 54 H (9-20) mg/dL Creatinine 1.53 H (0.66-1.25) mg/dL Microbiology - Last 24 Hours (Table) 07/26/21 14:10 Blood Culture - Preliminary Blood No Growth after 72 hours
--- NOTE | 2021-07-30 13:20 | P.DS ---
Providers Date of admission: 07/26/21 13:06 Expected date of discharge: 07/30/21 Attending physician: Kalie Yarbrough MD Consults: 07/26/21 13:06 Consult Physician Routine Consulting Provider: Frank Williamson Consult Reason/Comments: Dyspnea Do you want consulting provider notified?: Yes Consult Physician Routine Consulting Provider: Kendy Solares Consult Reason/Comments: CHF Do you want consulting provider notified?: Yes Primary care physician: Johan Duckworth MD Hospital Course: Acute on Chronic Systolic Congestive Heart Failure Exacerbation, EF 20% Permanent Atrial Fibrillation Bilateral Pleural Effusions JEANNE -admitted to inpatient, telemetry. CXR demonstrated b/l pleural effusions, cardiomegaly. Patient was started on IV lasix and diuresed. Cardiology followed with management. Pulmonology was consulted for pleural effusions and deferred thoracentesis as these were related to patient's severe cardiomyopathy. Pleural Effusions improved with diuretics. Patient was weaned back to room air by the time of discharge from peak requirement of 6L NC. Given patient's severe CM, spironolactone was added, and lisinopril was down titrated from 10 to 2.5mg given patient's borderline hypotension. Repeat Echo done this admission showed EF < 20%, global hypokinesis, LAE, mod concentric LVH. CXR after 2 days of diuresis compared to admission CXR showed improvement in pleural effusions, but ongoing venous congestion. Pt was diuresed for total of 6 days, then discharged. Patient is likely candidate for ICD and should follow up with Dr. Evans in 1 week for hospital f/u and possible EP referral. HTN HLD -Home meds reviewed and reconciled, lisinopril decreased to 2.5mg daily; spironolactone and lasix are new medications. Home robaxin, percocet, pseudophedrine were advised to be discontinued. I spent 45 minutes coordinating this complex discharge. Assessment: Gen: awake, alert HEENT: normocephalic, atraumatic, good hearing acuity, moist mucous membranes Resp: good air exchange, breathing comfortably with no accessory muscle use CVS: good distal perfusion x 4, GI: soft, NTTP, ND : no SPT, no CVAT, figueroa catheter not present MSK: Bilateral pitting edema, no clubbing Neuro: non-focal, moving all extremities Psych: cooperative, euthymic mood Patient Condition at Discharge: Good Plan - Discharge Summary Discharge Rx Participant: No New Discharge Prescriptions: New Spironolactone [Aldactone] 25 mg PO DAILY #30 tab Furosemide [Lasix] 40 mg PO BID@0900,1600 #60 tab lisinopriL [Zestril] 2.5 mg PO DAILY #30 tab Continue Aspirin [[place] Aspirin EC] 81 mg PO HS Apixaban [Eliquis] 2.5 mg PO BID #60 tablet carvediloL [Coreg] 6.25 mg PO BID-W/MEALS #60 tab Krill/Om-3/Dha/Epa/Phospho/Ast [Megared [place]-3 Krill 350 mg] 1 cap PO DAILY Cyanocobalamin [Vitamin B-12] 500 mcg PO DAILY Cholecalciferol (Vitamin D3) [Vitamin D3 (3000 Iu)] 75 mcg PO DAILY Multivitamins, Thera [Multivitamin (formulary)] 1 tab PO DAILY Vit C/E/Zn/Coppr/Lutein/Zeaxan [Preservision Areds 2 Softgel] 1 cap PO DAILY Lactulose 10 gm PO AC-TID Glucosamine/Chondr Burton A Sod [Osteo Bi-Flex Caplet] 1 tab PO DAILY Discontinued Lisinopril [Prinivil] 10 mg PO DAILY HYDROcodone/APAP 7.5-325MG [[place] 7.5-325] 1 tab PO DAILY PRN PRN Reason: Pain Methocarbamol [Robaxin-750] 750 mg PO QID PRN PRN Reason: Muscle Spasm Ibuprofen/Pseudoephedrine HCl [Advil Cold & Sinus Caplet] 1 cap PO Q6H PRN PRN Reason: sinus pain/congestion Discharge Medication List Aspirin [[place] Aspirin EC] 81 mg PO HS 08/06/18 [History] Apixaban [Eliquis] 2.5 mg PO BID #60 tablet 08/08/18 [Rx] carvediloL [Coreg] 6.25 mg PO BID-W/MEALS #60 tab 08/08/18 [Rx] Cyanocobalamin [Vitamin B-12] 500 mcg PO DAILY 07/16/20 [History] Krill/Om-3/Dha/Epa/Phospho/Ast [Megared [place]-3 Krill 350 mg] 1 cap PO DAILY 07/16/20 [History] Cholecalciferol (Vitamin D3) [Vitamin D3 (3000 Iu)] 75 mcg PO DAILY 07/26/21 [History] Glucosamine/Chondr Burton A Sod [Osteo Bi-Flex Caplet] 1 tab PO DAILY 07/26/21 [History] Lactulose 10 gm PO AC-TID 07/26/21 [History] Multivitamins, Thera [Multivitamin (formulary)] 1 tab PO DAILY 07/26/21 [History] Vit C/E/Zn/Coppr/Lutein/Zeaxan [Preservision Areds 2 Softgel] 1 cap PO DAILY 07/26/21 [History] Furosemide [Lasix] 40 mg PO BID@0900,1600 #60 tab 07/29/21 [Rx] Spironolactone [Aldactone] 25 mg PO DAILY #30 tab 07/29/21 [Rx] lisinopriL [Zestril] 2.5 mg PO DAILY #30 tab 07/29/21 [Rx] Follow up Appointment(s)/Referral(s): Johan Duckworth MD [Primary Care Provider] - 1-2 days ([facility] office to make appointment ) Levi Evans MD [STAFF PHYSICIAN] - 1 Week (call ofice to make appointment) Patient Instructions/Handouts: Heart Failure (DC) Discharge Disposition: HOME WITH HOME HEALTH SERVICES
--- NOTE | 2021-08-02 09:22 | CDI ---
Documentation Clarification Form Date: 08/02/2021 08:16:00 AM From: Penelope Rojo Admit Date: 07/26/2021 01:06:00 PM Patient Name: Jeff Bailon Visit Number: [id number] Discharge Date: 07/30/2021 01:06:00 PM ATTENTION: The Clinical Documentation Specialists (CDI) and [facility] Coding Staff appreciate your assistance in clarifying documentation. Please respond to the clarification below the line at the bottom and electronically sign. The CDI & [facility] Coding staff will review the response and follow-up if needed. Please note: Queries are made part of the Legal Health Record. If you have any questions, please contact the author of this message via ITS. Dr. Kendy Solares Per your documentation in consult "The elevation of the troponin represents a type II event related to the CHF." Please clarify if patient had a type II NSTEMI or was it ruled out. Patient History/Risk Factors: A/C systolic CHF, HTN cardiomyopathy, RBBB Clinical Indicators: Troponin: .097, .087, .092 EKG Results: abnormal RBBB and atrial fib Treatment: IV diuresis, beta block, anticoagulation. FANG inhibior and add Aldactone Please clarify the etiology of the Type 2 W[place], if known: [ ] Type 2 W[place] ruled out [xx ] Type 2 WY due to CHF [ ] Type 2 WY due to Arrhythmia (please specify ) [ ] Type 2 W[place] due to other (please specify ) [ ] Unable to determine [ ] Other Condition, please specify MTDD
== END 2021-07-30 13:06 | disposition home health service (06) | DRG 280 ==
LOC: EC 10:30 → 3SCARD 13:06
PROVIDERS: ADMIT Internal Medicine; ATTEND Internal Medicine
DX: I13.0 Hypertensive heart and chronic kidney disease with heart failure and stage 1 through stage 4 chronic kidney disease, or unspecified chronic kidney disease (principal); I50.23 Acute on chronic systolic (congestive) heart failure; I21.A1 Myocardial infarction type 2; J96.01 Acute respiratory failure with hypoxia; I48.21 Permanent atrial fibrillation; J98.11 Atelectasis; N17.9 Acute kidney failure, unspecified; R18.8 Other ascites; I42.8 Other cardiomyopathies; I45.10 Unspecified right bundle-branch block; E78.5 Hyperlipidemia, unspecified; I08.3 Combined rheumatic disorders of mitral, aortic and tricuspid valves; I25.10 Atherosclerotic heart disease of native coronary artery without angina pectoris; I70.0 Atherosclerosis of aorta; N18.9 Chronic kidney disease, unspecified; Z79.01 Long term (current) use of anticoagulants; Z79.82 Long term (current) use of aspirin; Z79.899 Other long term (current) drug therapy; Z96.649 Presence of unspecified artificial hip joint; Z20.822 Contact with and (suspected) exposure to COVID-19
CPT/HCPCS: 36415; 71045; 71046; 74176; 76604; 80048; 80053; 83605; 83735; 83880; 84145; 84484; 85025; 85610; 85730; 87040; 87635; 93005; 93306; 99291

== ENCOUNTER → 2021-07-26 | Outpatient (CLI) | payer MEDICARE ==
--- NOTE | 2021-07-26 10:06 | CT ---
EXAMINATION TYPE: CT abdomen pelvis wo con DATE OF EXAM: 07/26/2021 COMPARISON: 01/23/2021 HISTORY: 85-year-old male R1 0.9, Abdominal pain, shortness of breath CT DLP: 1442.6 mGycm. Automated exposure control for dose reduction was used. TECHNIQUE: Contiguous axial scanning of the abdomen and pelvis without IV contrast. Coronal and sagit edwige reconstructions performed. FINDINGS: Generalized anasarca change has increased from prior. Heart is mildly enlarged. No pericardial effusi on. LAD coronary artery calcifications. Enlarging, now moderate sized bilateral pleural effusions. Asymmetric elevation left hemidiaphragm redemonstrated. The vague hypodensity at the right hepatic dome is not as well seen due to streak and beam hardening artifact from the patient's arms down by his side. Refer to axial image 20. Noncontrast appearance of the gallbladder, adrenal glands, and spleen show no gross abnormal. The pancreas is markedly atrophic. Cortical hypodensities, one within each kidney measuring 1.5 cm on the right and 3.1 cm on the left s uggestive of renal cortical cyst. Nonobstructive 2 mm right lower pole renal calculus. Moderate atherosclerotic calcifications abdominal aorta and iliac arteries. Mild fusiform ectasia inf rarenal segment at 2.6 cm. Moderate abdominal ascites especially in the left subphrenic, right perihepatic, and pelvic areas has increased in the interval. No dilated small bowel or free air. Oral contrast has progressed into the cecum. There is moderate stool burden. Sigmoid diverticulosis. No convincing evidence for acute diverticulitis. Some annular thickening and narrowing at the distal sigmoid colon, axial image 67 could be evaluated with direct visualization when the patient is able to exclude neoplasm. There is redemonstrated left inguinal hernia containing a greater degree of ascites fluid is now esme uring 4.1 cm wide versus 2.3 cm, previously. Prostate gland measures 4.5 cm wide. Bladder is urine distended. Presacral edema has increased. Bones: Moderate degenerative change right hip. Artifact from the patient's right hip arthroplasty. De generative changes pubic symphysis. Hypertrophic facet arthropathy throughout the lumbar spine with B aastrup's disease and mild multilevel degenerative disc disease. IMPRESSION: 1. Marked interval worsening in diffuse anasarca change. Correlate for fluid overload state/third sp acing. Further workup and evaluation is recommended. 2. Enlarging moderate bilateral pleural effusions. 3. Enlarging moderate abdominopelvic ascites. There is an enlarging ascites fluid filled left inguin al hernia measuring 4.1 cm wide (versus 2.3 cm, previously). 4. Moderate stool burden. Sigmoid diverticulosis. 5. Annular thickening and narrowing of the distal sigmoid colon could represent focal peristalsis or spasm. Direct visualization when the patient is able to exclude neoplasm.
== END | disposition home or self-care (01) ==
LOC: RADCTMAIN 08:00
PROVIDERS: ATTEND Family Medicine
DX: R18.8 Other ascites (principal); K40.91 Unilateral inguinal hernia, without obstruction or gangrene, recurrent; K57.30 Diverticulosis of large intestine without perforation or abscess without bleeding; J90 Pleural effusion, not elsewhere classified
CPT/HCPCS: 74176; Q9967

== ENCOUNTER → 2021-09-19 | Outpatient (CLI) | payer MEDICARE ==
[2021-09-19 14:27] LABS: Anion Gap 12.6 mmol/L (10.00-18.00); Blood Urea Nitrogen 63.3 mg/dL (9.0-27.0); Carbon Dioxide 24.3 mmol/L (20.0-27.5); Non-African American GFR(CKD) 31.1 (60.0-200.0); Potassium 4.9 mmol/L (3.5-5.5)
== END | disposition home or self-care (01) ==
LOC: LABWHC1 09:59
PROVIDERS: ATTEND Internal Medicine Cardiovascular Disease
DX: I50.22 Chronic systolic (congestive) heart failure (principal)
CPT/HCPCS: 36415; 80051; 82565; 84520